=== PATIENT | female | born 1985 | race African-American/Black ===

== ENCOUNTER 2018-12-14 19:08 | Emergency (ER) | payer OTHER ==
[2018-12-14 19:14] VITALS: BP 121/71; PULSE 81; TEMP 98.7; BMI 32.2
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
== END 2018-12-14 22:45 | disposition home or self-care (01) ==
LOC: FER 19:08
DX: S09.90XA Unspecified injury of head, initial encounter (principal); S16.1XXA Strain of muscle, fascia and tendon at neck level, initial encounter; V43.52XA Car driver injured in collision with other type car in traffic accident, initial encounter; Y93.89 Activity, other specified; Y92.410 Unspecified street and highway as the place of occurrence of the external cause; J45.909 Unspecified asthma, uncomplicated; I10 Essential (primary) hypertension
CPT/HCPCS: 72050-TC-FY; 84703; 99281-25

== ENCOUNTER 2019-01-24 06:25 | Inpatient (IN) | payer OTHER ==
[2019-01-24 06:35] VITALS: BMI 32.4
[2019-01-24] MEDS ORDERED: ACETAMINOPHEN 1000 MG/100 ML VIAL (NON FORMULARY) IVPB ONE (06:42)
[2019-01-24] MEDS ORDERED: ONDANSETRON 4 MG/2 ML VIAL IVPUSH ONE (06:42)
[2019-01-24] MEDS ORDERED: SODIUM CHLORIDE 0.9% 1000 ML INFUS.BAG IV ONE (06:42)
--- NOTE | 2019-01-24 06:48 | PDOC ---
History of Present Illness - General Chief Complaint: Pain Stated Complaint: ABD PAIN Time Seen by Provider: 01/24/19 06:36 - History of Present Illness Initial Comments: 01/24/19 06:43 33 years old no significant past medical history has control implant in arm gave 15 months ago presents to the ED with 2 day history of sudden onset left flank pain left-sided abdominal discomfort no diffuse associated with 3-4 episodes of nonbilious nonbloody emesis nausea and inability to tolerate fluids pain is now persistent constant with no exacerbating or alleviating factors moderate to severe in severity sharp and achy in nature. Denies dysuria or frequency be urine is now dark and orange in color Past History - Past Medical History Allergies/Adverse Reactions: Allergies Allergy/AdvReac Type Severity Reaction Status Date / Time No Known Allergies Allergy Verified 08/27/16 19:37 Home Medications: Ambulatory Orders Etonogestrel [Nexplanon] 68 mg SQ ONCE 01/24/19 Asthma: Yes (NO MEDS) COPD: No HTN: Yes - Reproductive History (#): 3 Para: 1 Ectopic : Yes (ONE) Spontaneous : 1 - Suicide/Smoking/Psychosocial Hx Smoking History: Never smoked Have you smoked in the past 12 months: No Hx Alcohol Use: No Drug/Substance Use Hx: No Substance Use Type: None Review of Systems - Review of Systems Comments:: 01/24/19 06:45 ROS: A complete review of 10 out of 10 review of systems is taken and is negative apart from what is previously mentioned below and in the HPI. *Physical Exam - Vital Signs Last Vital Signs Temp Pulse Resp BP Pulse Ox 98.5 F 79 16 127/81 99 01/24/19 06:28 01/24/19 06:28 01/24/19 06:28 01/24/19 06:28 01/24/19 06:28 - Physical Exam Comments: 01/24/19 06:45 Vitals: Triage Vital signs reviewed General Appearance: mild acute distress, well nourished well developed, Head: Atraumatic, Chest Wall: Nontender Cardiac: Regular rate and rhythym, no murmurs, no rubs, no gallops, Lungs: Clear to auscultation bilateral, good air movement bilaterally, Abdomen: Soft, non distended, normal bowel sounds, left upper quadrant tenderness to palpation, diffuse abdominal tenderness to palpation, left greater than right, left CVA TTP Extremities: Full range of motion to all extremities, no cyanosis, clubbing, or edema Skin: Warm and dry, no rashes or lesions, no rash, no petechiae Psych: normal mood, normal affect Medical Decision Making - Medical Decision Making 01/24/19 06:47 33 years old with sudden onset left flank pain no abdominal tenderness Nausea vomiting moderate tenderness palpation on abdominal examination We'll check labs urinalysis urine hydrate antiemetics patient will likely require imaging Dr. Candelaria to follow up labs reassess and dispo *DC/Admit/Observation/Transfer Diagnosis at time of Disposition: Abdominal pain Qualifiers: Abdominal location: left upper quadrant Qualified Code(s): R10.12 - Left upper quadrant pain - Discharge Dispostion Condition at time of disposition: Stable - Referrals - Patient Instructions - Post Discharge Activity
[2019-01-24] MEDS ORDERED: ACETAMINOPHEN INJECTION 100 ML IVPB ONE (06:51)
[2019-01-24] MEDS ORDERED: ONDANSETRON 4 MG/2 ML VIAL ONE (06:51)
--- NOTE | 2019-01-24 07:20 | PDOC ---
*Physical Exam - Vital Signs Last Vital Signs Temp Pulse Resp BP Pulse Ox 98.5 F 79 16 127/81 99 01/24/19 06:28 01/24/19 06:28 01/24/19 06:28 01/24/19 06:28 01/24/19 06:28 Heart Score/ECG Review - ECG Impressions Comment:: EKG read 10:15- NSR 62 bpm, no acute ST/T changes ED Treatment Course - LABORATORY CBC & Chemistry Diagram: 01/24/19 06:50 01/24/19 06:52 - Medications Given in the ED: ED Medications Discontinued Medications Generic Name Dose Route Start Last Admin Trade Name Rosalba PRN Reason Stop Dose Admin Acetaminophen 1,000 mg 01/24/19 06:42 01/24/19 07:19 Ofirmev Injection - IVPB 01/24/19 06:43 1,000 mg ONCE ONE Administration Ondansetron HCl 4 mg 01/24/19 06:42 01/24/19 07:19 Zofran Injection IVPUSH 01/24/19 06:43 4 mg ONCE ONE Administration Sodium Chloride 1,000 ml 01/24/19 06:42 01/24/19 06:53 Normal Saline - IV 01/24/19 06:43 1,000 ml ONCE ONE Administration Medical Decision Making - Medical Decision Making 01/24/19 07:19 Pt endorsed to me by Dr. Guerra at 7am shift change. She presented with L flank pain radiating to LUQ, abrupt onset. Concerning for possible kidney stone. Awaiting labs, urine. Likely CT. 01/24/19 08:25 Labs resulted, lipase found to be >30,000. D/w patient and reassessed her. She has tenderness across the entire upper abdomen. I will obtain sono to r/o gallstones. I also added a lipid profile to prior labs. She states she does not drink alcohol with any frequency. Will keep her NPO on IV fluids and plan for admission pending imaging. 01/24/19 09:48 Contacted surgery dimensional engineer based on radiology reading of ultrasound. In light of symptoms, gallstone pancreatitis is most likely, acute jessica is unlikely. 01/24/19 09:56 Case d/w Dr. Wilson, suspect gallstone pancreatitis. Will require MRCP and possibly ERCP. Will admit to [facility]. Patient remains NPO on IV fluids. Will send preop labs. 01/24/19 09:57 Case d/w Kelli Swain HEAVY DUTY MECHANIC for hospitalist service, will see patient and begin workup while awaiting transfer to [facility]. *DC/Admit/Observation/Transfer Diagnosis at time of Disposition: Gallstone pancreatitis Pancreatitis Qualifiers: Chronicity: acute Pancreatitis type: unspecified pancreatitis type Acute pancreatitis complication: unspecified Qualified Code(s): K85.90 - Acute pancreatitis without necrosis or infection, unspecified - Discharge Dispostion Condition at time of disposition: Stable Decision to Admit order: Yes - Referrals - Patient Instructions - Post Discharge Activity
[2019-01-24 08:00] LABS: ALBUMIN 3.9 g/dl (3.4-5.0); BILIRUBIN,TOTAL 4.9 mg/dl (0.2-1); CALCIUM 8.8 mg/dl (8.5-10); CREATININE 0.7 mg/dl (0.55-1.3); POTASSIUM 4.1 mmol/L (3.5-5.1)
[2019-01-24 08:11] LABS: BASO % 0.4 % (0-2.0); EOS % 4.5 % (0-4.5); HEMOGLOBIN 11.8 GM/dL (10.7-15.3); LYMPH % 38.3 % (8-40); MCH 27.6 pg (25.7-33.7); MEAN CELL VOLUME 86.3 fl (80-96); MEAN PLT VOLUME 8.9 fl (7.5-11.1); MONO % 5.7 % (3.8-10.2); NEUT % 51.1 % (42.8-82.8); PLATELET COUNT 280 K/MM3 (134-434); RBC 4.29 M/mm3 (3.60-5.2); RDW 14.6 % (11.6-15.6); WHITE BLOOD COUNT 3.7 K/mm3 (4.0-10.0)
[2019-01-24] MEDS ORDERED: morphine CARPU-JECT 2 MG/1 ML DISP.SYRIN IVPUSH ONE (08:24)
[2019-01-24] MEDS ORDERED: SODIUM CHLORIDE 1,000 ML IV SCH (08:30)
[2019-01-24] MEDS ORDERED: morphine SULFATE 4 MG/ML VIAL ONE (08:39)
--- NOTE | 2019-01-24 10:08 | HP ---
CHIEF COMPLAINT: Left flank pain and left-sided abdominal pain HISTORY OF PRESENT ILLNESS: Based upon review of medical chart: 33 years old no significant past medical history has control implant in arm gave 15 months ago presents to the ED with 2 day history of sudden onset left flank pain left-sided abdominal discomfort no diffuse associated with 3-4 episodes of nonbilious nonbloody emesis nausea and inability to tolerate fluids pain is now persistent constant with no exacerbating or alleviating factors moderate to severe in severity sharp and achy in nature. Denies dysuria or frequency be urine is now dark and orange in color. At time of this admission patient had received 2mg morphine and benadryl and she felt too sleepy to answer questions or give further HPI. ER course was notable for: (1) WBC 3.7k, afebrile (2) Total bili 4.9, AST/ALT/Alk phos 289/578/194 (3) Lipase >30,000 (4) NS x 2L Recent Travel: No PAST MEDICAL HISTORY: Hypertension Asthma PAST SURGICAL HISTORY: Lumpectomy Social History: Smoking: never Alcohol: no Drugs: no Family History: Allergies No Known Allergies Allergy (Verified 01/24/19 08:07) HOME MEDICATIONS: Home Medications Medication Instructions Recorded Etonogestrel [Nexplanon] 68 mg SQ ONCE 01/24/19 REVIEW OF SYSTEMS: unable to obtain from patient due to medical condition PHYSICAL EXAMINATION Vital Signs - 24 hr 01/24/19 01/24/19 06:28 09:30 Temperature 98.5 F 98.8 F Pulse Rate 79 Pulse Rate [ 62 Right] Respiratory 16 16 Rate Blood Pressure 127/81 Blood Pressure 97/59 L [Left Arm] O2 Sat by Pulse 99 100 Oximetry (%) GENERAL: Awake, oriented. Sleepy but arousable. Follows commands, cooperative but says too sleepy to answer questions. HEAD: Normal with no signs of trauma. EYES: Pupils equal, round and reactive to light, extraocular movements intact, sclera anicteric, conjunctiva clear. No lid lag. EARS, NOSE, THROAT: Ears normal, nares patent, oropharynx clear without exudates. Moist mucous membranes. NECK: Normal range of motion, supple without lymphadenopathy, JVD, or masses. LUNGS: Breath sounds equal, clear to auscultation bilaterally. No wheezes, and no crackles. No accessory muscle use. HEART: Regular rate and rhythm, S1 and S2 ABDOMEN: Soft, tender across upper abdomen MUSCULOSKELETAL: Normal range of motion at all joints. No bony deformities or tenderness. No CVA tenderness. UPPER EXTREMITIES: 2+ pulses, warm, well-perfused. No cyanosis. No clubbing. No peripheral edema. LOWER EXTREMITIES: 2+ pulses, warm, well-perfused. No calf tenderness. No peripheral edema. NEUROLOGICAL: Cranial nerves II-XII intact. Normal speech. Laboratory Results - last 24 hr 01/24/19 01/24/19 01/24/19 06:41 06:50 06:50 WBC 3.7 L RBC 4.29 Hgb 11.8 Hct 37.0 MCV 86.3 MCH 27.6 MCHC 32.0 RDW 14.6 Plt Count 280 MPV 8.9 Absolute Neuts (auto) 1.9 Neutrophils % 51.1 Lymphocytes % 38.3 Monocytes % 5.7 Eosinophils % 4.5 Basophils % 0.4 Nucleated RBC % 0 Sodium Potassium Chloride Carbon Dioxide Anion Gap BUN Creatinine Est GFR (CKD-EPI)AfAm Est GFR (CKD-EPI)NonAf Random Glucose Calcium Total Bilirubin AST ALT Alkaline Phosphatase Total Protein Albumin Lipase > 75028 H Urine Color Yellow Urine Appearance Clear Urine pH 5.5 Urine Protein Negative Urine Glucose (UA) Negative Urine Ketones Negative Urine Blood Negative Urine Nitrite Negative Urine Bilirubin 2+ H Urine Urobilinogen 0.2 Ur Leukocyte Esterase Negative 01/24/19 06:52 WBC RBC Hgb Hct MCV MCH MCHC RDW Plt Count MPV Absolute Neuts (auto) Neutrophils % Lymphocytes % Monocytes % Eosinophils % Basophils % Nucleated RBC % Sodium 138 Potassium 4.1 Chloride 107 Carbon Dioxide 19 L Anion Gap 12 BUN 10 Creatinine 0.7 Est GFR (CKD-EPI)AfAm 131.02 Est GFR (CKD-EPI)NonAf 113.04 Random Glucose 110 H Calcium 8.8 Total Bilirubin 4.9 H AST 289 H ALT 578 H Alkaline Phosphatase 194 H Total Protein 7.0 Albumin 3.9 Lipase Urine Color Urine Appearance Urine pH Urine Protein Urine Glucose (UA) Urine Ketones Urine Blood Urine Nitrite Urine Bilirubin Urine Urobilinogen Ur Leukocyte Esterase ASSESSMENT/PLAN 33 year-old female with a PMH significant for HTN and asthma. Admitted for acute pancreatitis. Acute pancreatitis --lipase >30,000 --received NS x 2L in ED --switch NS to LR @ 150mL/hr --NPO Cholelithiasis r/o cholecystsitis r/o choledocholelithiasis --US: multiple small gallstones, likely sludge, mild thickening of gallbladder wall, no pericholecystic free fluid --attempted MRCP at [facility], patient could not tolerate due to claustrophobia even though had morphine and benadryl on board; since there is no telemetry monitoring in MRI suite at [facility] did not want to further sedate the patient; will transfer to [facility] for imaging in a monitored setting --patient advised ED staff that she had an MRI done a month ago and had to be completely sedated --GI consult requested --Dr. Wilson consulted and aware, also requesting transfer to [facility] DVT prophylaxis: SCDs Dispo: transfer to [facility]. Full code. Visit type - Emergency Visit Emergency Visit: Yes Care time: The patient presented to the Emergency Department on the above date and was hospitalized for further evaluation of their emergent condition. - New Patient This patient is new to me today: Yes Date on this admission: 01/24/19 - Critical Care Critical Care patient: No
[2019-01-24 11:28] LABS: INR 1.16 (0.82-1.09); PROTHROMBIN TIME (PATIENT) 12.7 SEC (10.2-13.0)
[2019-01-24] MEDS ORDERED: LACTATED RINGERS SOLUTION 1,000 ML/1,000 ML INFUS.BAG IV SCH (12:00)
[2019-01-24] MEDS ORDERED: ONDANSETRON 4 MG/2 ML VIAL IVPUSH PRN ×2 (12:06→20:14)
--- NOTE | 2019-01-24 15:01 | CONSULT ---
Consult Consult Specialty:: General Surgery Referred by:: Anisa Candelaria Reason for Consultation:: gallstone pancreatitis - History of Present Illness Chief Complaint: epigastric/upper abdominal pain through to back, N/V History of Present Illness: 33yo Steven F with asthma, h/o , L breast lumpectomy, LUE contraceptive implant, presented to [facility] ER with upper abdominal pain radiating through to back, worse on left, starting yesterday. It also woke her up from sleep last night, and she had N/V x 3 episodes at home. She was tolerating mint tea, but not eating much. Only one BM since Wednesday, usually twice daily. She also noted her urine was orange yesterday. She has had occasional recent headaches, and in the last couple days, has been dizzy "when she got up too quickly." In the ER, she had normal wbc, high LFTs and lipase ( bili 4.9, lip >30K), and US showed gallstones with possible sludge, no ductal dilation, possible wall thickening and no pericholecystic fluid. She could not tolerate MRI without sedation, and was sent to [facility] for MRCP, GI consultation and possible ERCP and cholecystectomy. Surgery was asked to assess. She is seen and examined in her bed, and gave the above history. She reports her pain is starting to come back a bit. 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 She is getting IV fluids at 150ml/hr. She is hungry but understands the need to stay NPO. She indicated that she had itching when she got morphine in the ER; she also was given benadryl. She has not had further N/V. - History Source History Provided By: Patient Limitations to Obtaining History: No Limitations - Past Medical History Pulmonary: Yes: Asthma (no inhaler use for years) Reproductive: Yes: Other (has Nexplanon implant LUE) ...: No ...Para: 2 (9 and 15m old) - Past Surgical History Past Surgical History: Yes: Breast Biopsy (probable fibroadenoma removed as youth in [place]), Additional Surgical History: Nexplanon implant left upper arm - Alcohol/Substance Use Hx Alcohol Use: Yes (occasionally) History of Substance Use: reports: None - Smoking History Smoking history: Never smoked Have you smoked in the past 12 months: No - Social History ADL: Independent 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 (year[place] 19 yrs ago Home Medications - Allergies Allergies/Adverse Reactions: Allergies Allergy/AdvReac Type Severity Reaction Status Date / Time peanut Allergy Severe Swelling Verified 01/24/19 15:12 morphine AdvReac Mild Itching Verified 01/24/19 15:00 - Home Medications Home Medications: Ambulatory Orders Etonogestrel [Nexplanon] 68 mg SQ ONCE 01/24/19 Family Disease History - Family Disease History Family History: Unremarkable (child with asthma) Review of Systems - Review of Systems Constitutional: reports: Loss of Appetite. denies: Chills, Fever Eyes: denies: Blurred Vision, Recent Change in Vision HENT: denies: Difficult Swallowing, Throat Pain Neck: denies: Pain on Movement, Stiffness Cardiovascular: reports: Other ("racing heart" occasionally). denies: Chest Pain, Palpitations Respiratory: denies: Cough, SOB Gastrointestinal: reports: Abdominal Pain (with hpi), Constipation (since Wednesday ), Nausea (with hpi), Vomiting (with hpi). denies: Diarrhea, Vomiting Blood Genitourinary: reports: Other (urine orange since yesterday). denies: Burning, Dysuria Musculoskeletal: reports: Back Pain (with hpi). denies: Joint Pain, Muscle Pain Integumentary: denies: Change in Color (none noted), Rash Neurological: reports: Dizziness (when getting up quickly last couple days), Headache (recently at times) Physical Exam Vital Signs: Vital Signs Temperature 98.8 F 01/24/19 13:15 Pulse Rate 64 01/24/19 13:15 Respiratory Rate 20 01/24/19 13:15 Blood Pressure 124/69 01/24/19 13:15 O2 Sat by Pulse Oximetry (%) 100 01/24/19 12:44 Constitutional: Yes: Well Nourished, No Distress, Calm Eyes: Yes: Conjunctiva Clear, EOM Intact, Sclera Icterus (faint? possible) HENT: Yes: Atraumatic, Normocephalic Neck: Yes: Supple, Trachea Midline Cardiovascular: Yes: Regular Rate and Rhythm Respiratory: Yes: Regular, CTA Bilaterally. No: Wheezes Gastrointestinal: Yes: Normal Bowel Sounds, Soft, Tenderness, Epigastrium (no francisca/guard), Other (well-healed Pfannenstiel scar). No: Distention Renal/: No: CVA Tenderness - Left, CVA Tenderness - Right Breast(s): Yes: Other (left upper breast healed scar) Musculoskeletal: No: Joint Stiffness, Joint Swelling Extremities: No: Cool, Cyanosis Edema: No Peripheral Pulses WNL: Yes Integumentary: No: Jaundice (not apparent on skin - vaguely yellowish under tongue), Rash Neurological: Yes: Alert, Oriented Psychiatric: Yes: Alert, Oriented Labs: CBC, BMP 01/24/19 06:50 01/24/19 06:52 CMP Sodium 138 mmol/L (136-145) 01/24/19 06:52 Potassium 4.1 mmol/L (3.5-5.1) 01/24/19 06:52 Chloride 107 mmol/L (98-107) 01/24/19 06:52 Carbon Dioxide 19 mmol/L (21-32) L 01/24/19 06:52 Anion Gap 12 MMOL/L (8-16) 01/24/19 06:52 BUN 10 mg/dl (7-18) 01/24/19 06:52 Creatinine 0.7 mg/dl (0.55-1.3) 01/24/19 06:52 Est GFR (CKD-EPI)AfAm 131.02 01/24/19 06:52 Est GFR (CKD-EPI)NonAf 113.04 01/24/19 06:52 Random Glucose 110 mg/dl (74-106) H 01/24/19 06:52 Calcium 8.8 mg/dl (8.5-10) 01/24/19 06:52 Total Bilirubin 4.9 mg/dl (0.2-1) H 01/24/19 06:52 AST 289 U/L (15-37) H 01/24/19 06:52 ALT 578 U/L (13-61) H 01/24/19 06:52 Alkaline Phosphatase 194 U/L (45-117) H 01/24/19 06:52 C-Reactive Protein 0.5 MG/DL (0.00-0.3) H 01/24/19 06:50 Total Protein 7.0 g/dl (6.4-8.2) 01/24/19 06:52 Albumin 3.9 g/dl (3.4-5.0) 01/24/19 06:52 Lipase > 36736 U/L (73-393) H 01/24/19 06:50 INR, PTT INR 1.16 (0.82-1.09) 01/24/19 09:59 Urine Test Results Urine Color Yellow 01/24/19 06:41 Urine Appearance Clear 01/24/19 06:41 Urine pH 5.5 (4.5-8) 01/24/19 06:41 Urine Protein Negative (NEGATIVE) 01/24/19 06:41 Urine Glucose (UA) Negative (NEGATIVE) 01/24/19 06:41 Urine Ketones Negative (NEGATIVE) 01/24/19 06:41 Urine Blood Negative (NEGATIVE) 01/24/19 06:41 Urine Nitrite Negative (NEGATIVE) 01/24/19 06:41 Urine Bilirubin 2+ (NEGATIVE) H 01/24/19 06:41 Ur Leukocyte Esterase Negative (NEGATIVE) 01/24/19 06:41 LFTs, lipase elevated no trend yet Imaging - Results Ultrasound: Report Reviewed, Image Reviewed (images reviewed; + gallstones, no pericholecystic fluid, no ductal dilation) MRI: Pending (per pt - will need sedation, she is very claustrophobic) Problem List - Problems (1) Gallstone pancreatitis Assessment/Plan: admitted to medicine NPO/generous IV hydration would NOT resume po until pain, tenderness resolve (after ERCP if done AND after assurance of no post-ERCP pancreatitis) trend labs, including lipase need MRCP (can do without contrast) - per pt, she will need sedation GI consulted for possible ERCP GI/DVT prophylaxis Code(s): K85.10 - BILIARY ACUTE PANCREATITIS WITHOUT NECROSIS OR INFECTION (2) Calculus of gallbladder and bile duct with obstruction without cholecystitis Assessment/Plan: will discuss timing of cholecystectomy after duct is cleared and pancreatitis mostly resolved Code(s): K80.71 - CALCULUS OF GB AND BILE DUCT W/O CHOLECYST W OBSTRUCTION (3) Epigastric pain Assessment/Plan: recommend nonnarcotics first line - IV tylenol/ibuprofen she had itching with morphine (not true allergy) Code(s): R10.13 - EPIGASTRIC PAIN (4) Nausea and vomiting Code(s): R11.2 - NAUSEA WITH VOMITING, UNSPECIFIED Qualifiers: Vomiting type: unspecified Vomiting Intractability: non-intractable Qualified Code(s): R11.2 - Nausea with vomiting, unspecified
[2019-01-24] MEDS: LACTATED RINGERS SOLUTION 1,000 ML/1,000 ML INFUS.BAG IV SCH ×2 (15:55→22:29)
--- NOTE | 2019-01-24 16:03 | CON.GI ---
Consult Consult Specialty:: GI Referred by:: Hospitalist Service Reason for Consultation:: Gallstone pancreatitis - History of Present Illness Chief Complaint: Abdominal pain History of Present Illness: 33F transferred from [place] for evaluation of sudden onset and progressively more intense left upper abdominal pain raditating to the back, starting at around 3pm yesterday. Noted to have elevated lipase and elevated liver chemistries. She denies alcohol use or similar episodes in the past. Abdominal US revealed multiple small gallstones. There is no known history of liver disease or pancreatitis. - History Source History Provided By: Patient, Medical Record Limitations to Obtaining History: No Limitations - Past Medical History Pulmonary: Yes: Asthma (no inhaler use for years) ...: No - Past Surgical History Past Surgical History: Yes: Breast Biopsy (probable fibroadenoma removed as youth in [place] (left breast)), Additional Surgical History: Nexplanon implant left upper arm - Alcohol/Substance Use Hx Alcohol Use: Yes (occasionally) History of Substance Use: reports: None - Smoking History Smoking history: Never smoked Have you smoked in the past 12 months: No - Social History Usual Living Arrangement: With Spouse ADL: Independent 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year[place] 2000 History of Recent Travel: No Home Medications - Allergies Allergies/Adverse Reactions: Allergies Allergy/AdvReac Type Severity Reaction Status Date / Time peanut Allergy Severe Swelling Verified 01/24/19 15:12 morphine AdvReac Mild Itching Verified 01/24/19 15:00 - Home Medications Home Medications: Ambulatory Orders Etonogestrel [Nexplanon] 68 mg SQ ONCE 01/24/19 Family Disease History - Family Disease History Family Disease History: Other: Father (Alive: healthy), Mother (Alive: healthy) , Brother (3, healthy), Sister (1, healthy), Son (1, Healthy), Daughter (1, healthy) Other Family History: 3 healthy 1/3 siblings. No family history of colorectal cancer or other GI malignancy. Review of Systems - Review of Systems Constitutional: denies: Chills Cardiovascular: reports: Palpitations. denies: Chest Pain, Edema Respiratory: denies: Cough Gastrointestinal: reports: Abdominal Pain. denies: Diarrhea, Melena, Rectal Bleeding Physical Exam-GI Vital Signs: Vital Signs Temperature 98.8 F 01/24/19 13:15 Pulse Rate 64 01/24/19 13:15 Respiratory Rate 20 01/24/19 13:15 Blood Pressure 124/69 01/24/19 13:15 O2 Sat by Pulse Oximetry (%) 100 01/24/19 12:44 Constitutional: Yes: Calm Eyes: Yes: Sclera Icterus (mildly icteric) Cardiovascular: Yes: Regular Rate and Rhythm. No: Murmur Respiratory: Yes: CTA Bilaterally Gastrointestinal Inspection: Yes: Scars (horizontal pelvic surgical scar). No: Distention ...Auscultate: Yes: Normoactive Bowel Sounds ...Palpate: Yes: Soft, Tenderness (TTP left upper abdomen > mid abdomen) ...Percussion: No: Tympanitic Edema: No (No LE edema) Neurological: Yes: Alert Labs: CBC, BMP 01/24/19 06:50 01/24/19 06:52 INR, PTT INR 1.16 (0.82-1.09) 01/24/19 09:59 Hepatic Panel Total Bilirubin 4.9 mg/dl (0.2-1) H 01/24/19 06:52 AST 289 U/L (15-37) H 01/24/19 06:52 ALT 578 U/L (13-61) H 01/24/19 06:52 Alkaline Phosphatase 194 U/L (45-117) H 01/24/19 06:52 Albumin 3.9 g/dl (3.4-5.0) 01/24/19 06:52 Imaging - Results Ultrasound: Report Reviewed Problem List - Problems (1) Gallstone pancreatitis Assessment/Plan: Suspected gallstone pancreatitis Given elevated bilirubin, discussed ERCP with Ms. Desir in order to exclude retained CBD stone prior to cholecystectomy. (Patient refuses MRCP secondary to severe claustraphobia, however, Elevated liver chemistries raise pretest probability that there is retained stone regardless if MRCP was negative) Discussed potential risks of the procedure like but not limited to bleeding, perforation requiring surgery to repair, infection, sedation medication effects and pancreatitis (5-10% of cases) all of which could be potentially life threatening. She has agreed to the procedure. For now IV hydration. 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
[2019-01-24] MEDS ORDERED: METOCLOPRAMIDE HCL INJECTION 10 MG/2 ML VIAL IVPUSH ONE (20:26)
[2019-01-25 07:28] LABS: BASO % 0.5 % (0-2.0); EOS % 1.6 % (0-4.5); HEMATOCRIT 35.5 % (32.4-45.2); HEMOGLOBIN 11.4 GM/dL (10.7-15.3); LYMPH % 33.3 % (8-40); MCH 27.8 pg (25.7-33.7); MEAN CELL VOLUME 86.7 fl (80-96); MEAN PLT VOLUME 8.4 fl (7.5-11.1); MONO % 6.3 % (3.8-10.2); NEUT % 58.3 % (42.8-82.8); PLATELET COUNT 276 K/MM3 (134-434); RBC 4.09 M/mm3 (3.60-5.2); RDW 14.4 % (11.6-15.6); WHITE BLOOD COUNT 4.8 K/mm3 (4.0-10.0)
[2019-01-25] MEDS ORDERED: INDOMETHACIN 50 MG RECTAL SUPPOSITORY PR ONE (08:00)
[2019-01-25 08:25] LABS: ALBUMIN 3.5 g/dl (3.4-5.0); CALCIUM 9.1 mg/dL (8.5-10.1); CREATININE 0.9 mg/dL (0.55-1.3); POTASSIUM 4.3 mmol/L (3.5-5.1); TOT PROT 6.6 g/dl (6.4-8.2)
[2019-01-25] MEDS ORDERED: ACETAMINOPHEN 1000 MG/100 ML VIAL (NON FORMULARY) IVPB PRN (08:41)
[2019-01-25] MEDS: PANTOPRAZOLE SODIUM 40 MG VIAL IVPUSH SCH (09:28)
[2019-01-25] MEDS: LACTATED RINGERS SOLUTION 1,000 ML/1,000 ML INFUS.BAG IV SCH (10:37)
--- NOTE | 2019-01-25 11:00 | PN ---
Progress Note, Physician Chief Complaint: abdominal pain History of Present Illness: Mrs Desir is a 33 year old female with a past medical history of hypertension and asthma. She has a control implant of her left upper arm and is post x 15 months ago. On 01/24/2019, she presented to [facility] ED for abdominal pain and acute onset of left flank pain with left sided abdominal discomfort associated with non bilious emesis and nausea. She was unable to tolerate fluids and abdominal pain was constant and sharp. She was transferred from [place] on 01/24/2019 for further management and surgical evaluation. imaging us/abdomen: multiple gallstones and likely sludge as well as mild thickening of gallbladder. ct abd/pelvis: no def ct evidence of acute pancreatitis. subtle to mild gallbladder and thickening is noted. ercp not yet scanned into [facility], as per GI note, 2 stones, but the 3rd could not be extracted so a stent was placed. Patient will need repeat ERCP after a course of Actigal 3-4 months. - Current Medication List Current Medications: Active Medications Acetaminophen (Ofirmev Injection -) 1,000 mg IVPB Q6H PRN PRN Reason: PAIN LEVEL 7 - 10 Lactated Ringer's (Lactated Ringers Solution) 1,000 ml in 1,000 mls @ 200 mls/ hr IV ASDIR [facility] Last Admin: 01/25/19 10:37 Dose: 200 mls/hr Ondansetron HCl (Zofran Injection) 4 mg IVPUSH Q6H PRN PRN Reason: NAUSEA Last Admin: 01/24/19 22:29 Dose: 4 mg Pantoprazole Sodium (Protonix Iv) 40 mg IVPUSH DAILY [facility] Last Admin: 01/25/19 09:28 Dose: 40 mg - Objective Vital Signs: Vital Signs Temperature 99.2 F 01/25/19 06:34 Pulse Rate 86 01/25/19 06:34 Respiratory Rate 20 01/25/19 06:34 Blood Pressure 124/72 01/25/19 06:34 O2 Sat by Pulse Oximetry (%) 100 01/24/19 12:44 Constitutional: Yes: Calm, Mild Distress Eyes: Yes: WNL HENT: Yes: WNL Neck: Yes: WNL Cardiovascular: Yes: Regular Rate and Rhythm Respiratory: Yes: Regular, CTA Bilaterally Gastrointestinal: Yes: Tenderness ...Rectal Exam: Yes: Deferred Genitourinary: Yes: WNL Musculoskeletal: Yes: WNL Extremities: Yes: WNL Peripheral Pulses WNL: Yes Integumentary: Yes: WNL Neurological: Yes: WNL, Alert, Oriented ...Motor Strength: WNL Psychiatric: Yes: WNL Labs: CBC, BMP 01/25/19 06:30 01/25/19 06:30 INR, PTT INR 1.16 (0.82-1.09) 01/24/19 09:59 Problem List - Problems (1) Gallstone pancreatitis Assessment/Plan: ultrasound, ctap noted. ultrasound with multiple gallstones and likely sludge. Had an ERCP today with 2 out of 3 stones extracted. 3rd stone could not be extracted so a stent was placed. Per GI, patient will need repeat ERCP after a course of Actigal 3-4 months. Maintain NPO for abdominal tenderness and mild nausea. Manage pain with toradol and dilaudid. Protonix IV. Advance diet per GI Lipase initially 30k, now 347. Repeat lipase in a.m. Code(s): K85.10 - BILIARY ACUTE PANCREATITIS WITHOUT NECROSIS OR INFECTION (2) Nausea and vomiting Assessment/Plan: Mild nausea. Zofran as needed. ekg reviewed. qtc normal. Code(s): R11.2 - NAUSEA WITH VOMITING, UNSPECIFIED Qualifiers: Vomiting type: unspecified Vomiting Intractability: non-intractable Qualified Code(s): R11.2 - Nausea with vomiting, unspecified (3) Hypertension Assessment/Plan: BP stable on no home medications. Monitor. Code(s): I10 - ESSENTIAL (PRIMARY) HYPERTENSION (4) Asthma Assessment/Plan: history of asthma. not in acute exacerbation. duonebs prn. Code(s): J45.909 - UNSPECIFIED ASTHMA, UNCOMPLICATED (5) Prophylactic measure Assessment/Plan: fen NPO, on IVF monitor electrolytes advance diet per surgery prophy SCDs protonix iv full code Code(s): Z29.9 - ENCOUNTER FOR PROPHYLACTIC MEASURES, UNSPECIFIED Visit type - Emergency Visit Emergency Visit: Yes ED Registration Date: 01/24/19 Care time: The patient presented to the Emergency Department on the above date and was hospitalized for further evaluation of their emergent condition. - New Patient This patient is new to me today: Yes Date on this admission: 01/25/19 - Critical Care Critical Care patient: No - Discharge Referral Referred to [facility] No
[2019-01-25] MEDS ORDERED: MIDAZOLAM HCL 2 MG/2 ML SINGLE DOSE VIAL ONE (12:28)
[2019-01-25] MEDS ORDERED: IOHEXOL 300 MG/ML INFUS..BTL IV ONE (13:19)
--- NOTE | 2019-01-25 13:54 | PN ---
Progress Note (short form) - Note Progress Note: GI Procedure NOte: Please see ERCP report. 2 stones removed but the 3rd could not be extracted so a stent was placed, Will need repeat ERCP after a course of Actigal in 3-4 months. Can proceed with cholecystectomy if pancreatitis doesn't ensue.
[2019-01-25] MEDS ORDERED: LACTATED RINGERS SOLUTION 1,000 ML/1,000 ML INFUS.BAG IV SCH ×2 (13:56→20:00)
[2019-01-25] MEDS ORDERED: oxyCODONE HCL 5 MG TABLET PO PRN (17:12)
[2019-01-25] MEDS ORDERED: KETOROLAC TROMETHAMINE 15 MG/ML VIAL IVPUSH ONE (17:24)
--- NOTE | 2019-01-25 17:24 | EKG ---
Test Reason : Blood Pressure : / mmHG Vent. Rate : 062 BPM Atrial Rate : 062 BPM P-R Int : 154 ms QRS Dur : 072 ms QT Int : 396 ms P-R-T Axes : 045 044 019 degrees QTc Int : 401 ms NORMAL SINUS RHYTHM NORMAL ECG NO PREVIOUS ECGS AVAILABLE Confirmed by DESEAN DICK MD ([id number]) on 01/25/2019 5:24:11 PM Referred By: MACI SARGENT Confirmed By:DESEAN DICK MD
[2019-01-25] MEDS ORDERED: KETOROLAC TROMETHAMINE 15 MG/ML VIAL IVPUSH PRN (17:25)
--- NOTE | 2019-01-25 20:09 | PN ---
Progress Note, Physician History of Present Illness: Pt with gallstone pancreatitis, s/p ERCP today with extraction of two out of three stones and stent placement. She is seen and examined in bed, with mother present. She c/o pain, returned after coming back from ERCP and before trying clears for dinner. The Toradol is not helping. She has spit a little bit in a basin, but denies nausea or vomiting. Pain is across upper abdomen. She had some jello and half a frozen ice. She is otherwise in good spirits. LFTs were down a bit today except alk phos a little up, and lipase down to 374 (all this morning). - Current Medication List Current Medications: Active Medications Acetaminophen (Tylenol -) 500 mg PO Q6H PRN PRN Reason: PAIN LEVEL 4 - 6 Lactated Ringer's (Lactated Ringers Solution) 1,000 ml in 1,000 mls @ 200 mls/ hr IV ASDIR JESSIE Stop: 01/26/19 02:00 Lactated Ringer's (Lactated Ringers Solution) 1,000 ml in 1,000 mls @ 175 mls/ hr IV ASDIR JESSIE Stop: 01/26/19 08:00 Lactated Ringer's (Lactated Ringers Solution) 1,000 ml in 1,000 mls @ 150 mls/ hr IV ASDIR JESSIE Levofloxacin (Levaquin 500 Mg Premixed Ivpb -) 500 mg in 100 mls @ 100 mls/hr IVPB DAILY JESSIE; Protocol Metronidazole (Flagyl 500mg Premixed Ivpb -) 500 mg in 100 mls @ 100 mls/hr IVPB Q8H-IV JESSIE Ketorolac Tromethamine (Toradol Injection -) 15 mg IVPUSH Q6H PRN PRN Reason: PAIN LEVEL 7 - 10 Stop: 01/30/19 17:24 Ondansetron HCl (Zofran Injection) 4 mg IVPUSH Q6H PRN PRN Reason: NAUSEA Last Admin: 01/24/19 22:29 Dose: 4 mg Pantoprazole Sodium (Protonix Iv) 40 mg IVPUSH DAILY JESSIE Last Admin: 01/25/19 09:28 Dose: 40 mg - Objective Vital Signs: Vital Signs Temperature 98.2 F 01/25/19 16:15 Pulse Rate 93 H 01/25/19 16:15 Respiratory Rate 20 01/25/19 16:15 Blood Pressure 121/72 01/25/19 16:15 O2 Sat by Pulse Oximetry (%) 100 01/25/19 15:30 Constitutional: Yes: Well Nourished, No Distress, Calm Eyes: Yes: Conjunctiva Clear, EOM Intact, Sclera Icterus (faintly yellowish) Gastrointestinal: Yes: Soft, Tenderness (LUQ > RUQ - right side refers to epigastric and LUQ; + rebound), Tenderness, Epigastrium Extremities: No: Cool, Cyanosis Integumentary: Yes: Tattoos. No: Jaundice (not apparent), Rash Neurological: Yes: Alert, Oriented Labs: CBC, BMP 01/25/19 06:30 01/25/19 06:30 CMP Sodium 138 mmol/L (136-145) 01/25/19 06:30 Potassium 4.3 mmol/L (3.5-5.1) 01/25/19 06:30 Chloride 108 mmol/L (98-107) H 01/25/19 06:30 Carbon Dioxide 20 mmol/L (21-32) L 01/25/19 06:30 Anion Gap 10 MMOL/L (8-16) 01/25/19 06:30 BUN 7 mg/dL (7-18) 01/25/19 06:30 Creatinine 0.9 mg/dL (0.55-1.3) 01/25/19 06:30 Est GFR (CKD-EPI)AfAm 96.69 01/25/19 06:30 Est GFR (CKD-EPI)NonAf 83.42 01/25/19 06:30 Random Glucose 67 mg/dL (74-106) L 01/25/19 06:30 Calcium 9.1 mg/dL (8.5-10.1) 01/25/19 06:30 Total Bilirubin 4.0 mg/dL (0.2-1) H 01/25/19 06:30 Direct Bilirubin Cancelled 01/24/19 06:52 AST 156 U/L (15-37) H 01/25/19 06:30 ALT 490 U/L (13-61) H 01/25/19 06:30 Alkaline Phosphatase 230 U/L (45-117) H 01/25/19 06:30 C-Reactive Protein 0.5 MG/DL (0.00-0.3) H 01/24/19 06:50 Total Protein 6.6 g/dl (6.4-8.2) 01/25/19 06:30 Albumin 3.5 g/dl (3.4-5.0) 01/25/19 06:30 Triglycerides Cancelled 01/24/19 06:52 Cholesterol Cancelled 01/24/19 06:52 Total LDL Cholesterol Cancelled 01/24/19 06:52 HDL Cholesterol Cancelled 01/24/19 06:52 Lipase 374 U/L (73-393) 01/25/19 06:30 Problem List - Problems (1) Gallstone pancreatitis Assessment/Plan: s/p ERCP with stone extraction and residual stone left, with stent placement would revert to NPO except meds and ice chips while still so painful and tender continue generous IV hydration trend labs, including lipase antibiotics per GI tylenol and toradol first line, will add dilaudid small dose for breakthru pain (morphine causes ITCHING, not allergy - benadryl prn also ordered) monitor for bump in lipase in am/post-ERCP pancreatitis discussed with SELIN Gregory Code(s): K85.10 - BILIARY ACUTE PANCREATITIS WITHOUT NECROSIS OR INFECTION (2) Calculus of gallbladder and bile duct with obstruction without cholecystitis Assessment/Plan: will discuss timing of cholecystectomy after pancreatitis more resolved, less pain and tenderness will f/u tomorrow in afternoon Code(s): K80.71 - CALCULUS OF GB AND BILE DUCT W/O CHOLECYST W OBSTRUCTION (3) Epigastric pain Assessment/Plan: not much improved yet still quite tender NPO x meds/ice chips see above Code(s): R10.13 - EPIGASTRIC PAIN (4) Nausea and vomiting Assessment/Plan: improved Code(s): R11.2 - NAUSEA WITH VOMITING, UNSPECIFIED Qualifiers: Vomiting type: unspecified Vomiting Intractability: non-intractable Qualified Code(s): R11.2 - Nausea with vomiting, unspecified
[2019-01-25] MEDS: HYDROmorphone HCl 2 MG/ML VIAL IVPB PRN (20:29)
[2019-01-25] MEDS ORDERED: ALBUTEROL SO4 2.5/IPRATROPIUM 0.5 INH SOL 3 ML VIAL.NEB. NEB PRN (21:54)
[2019-01-26] MEDS ORDERED: LACTATED RINGERS SOLUTION 1,000 ML/1,000 ML INFUS.BAG IV SCH (02:00)
[2019-01-26 08:00] LABS: BASO % 0.1 % (0-2.0); HEMATOCRIT 31.3 % (32.4-45.2); HEMOGLOBIN 10.2 GM/dL (10.7-15.3); LYMPH % 10.1 % (8-40); MCH 28.2 pg (25.7-33.7); MCHC 32.6 g/dl (32.0-36.0); MEAN CELL VOLUME 86.5 fl (80-96); MEAN PLT VOLUME 8.8 fl (7.5-11.1); MONO % 4.4 % (3.8-10.2); NEUT % 85.4 % (42.8-82.8); PLATELET COUNT 261 K/MM3 (134-434); RBC 3.62 M/mm3 (3.60-5.2); RDW 14.3 % (11.6-15.6); WHITE BLOOD COUNT 10.8 K/mm3 (4.0-10.0)
[2019-01-26 08:19] LABS: BILIRUBIN,DIRECT 1.5 mg/dL (0.0-0.2); BILIRUBIN,TOTAL 1.9 mg/dL (0.2-1); CALCIUM 8.8 mg/dL (8.5-10.1); CREATININE 0.9 mg/dL (0.55-1.3); POTASSIUM 4.1 mmol/L (3.5-5.1); TOT PROT 6.1 g/dl (6.4-8.2)
[2019-01-26] MEDS: HYDROmorphone HCl 2 MG/ML VIAL IVPB PRN (08:22)
[2019-01-26] MEDS: PANTOPRAZOLE SODIUM 40 MG VIAL IVPUSH SCH (09:07)
[2019-01-26] MEDS ORDERED: HYDROmorphone HCl 2 MG/ML VIAL IVPB PRN (14:20)
--- NOTE | 2019-01-26 14:21 | PN ---
Progress Note, Physician Chief Complaint: feeling dizzy and having "delusions" each time she takes dilaudid. History of Present Illness: Mrs Desir is a 33 year old female with a past medical history of asthma. She has a control implant of her left upper arm and is post x 15 months ago. On 01/24/2019, she presented to [facility] ED for abdominal pain and acute onset of left flank pain with left sided abdominal discomfort associated with non bilious emesis and nausea. She was unable to tolerate fluids and abdominal pain was constant and sharp. She was transferred from [place] on 01/24/2019 for further management and surgical evaluation. imaging us/abdomen: multiple gallstones and likely sludge as well as mild thickening of gallbladder. ct abd/pelvis: no def ct evidence of acute pancreatitis. subtle to mild gallbladder and thickening is noted. per GI note, 2 stones, but the 3rd could not be extracted so a stent was placed. Patient will need repeat ERCP after a course of Actigal 3-4 months. - Current Medication List Current Medications: Active Medications Acetaminophen (Tylenol -) 500 mg PO Q6H PRN PRN Reason: PAIN LEVEL 4 - 6 Albuterol/Ipratropium (Duoneb -) 1 amp NEB Q6H PRN PRN Reason: SHORTNESS OF BREATH Diphenhydramine HCl (Benadryl Injection -) 25 mg IVPUSH Q4H PRN PRN Reason: FOR ITCHING Hydromorphone HCl (Dilaudid Vial -) 0.5 mg IVPB Q4H PRN PRN Reason: Pain Level 7 - 10 BREAKTHROUGH Lactated Ringer's (Lactated Ringers Solution) 1,000 ml in 1,000 mls @ 150 mls/ hr IV ASDIR JESSIE Levofloxacin (Levaquin 500 Mg Premixed Ivpb -) 500 mg in 100 mls @ 100 mls/hr IVPB DAILY JESSIE; Protocol Last Admin: 01/26/19 09:07 Dose: 100 mls/hr Metronidazole (Flagyl 500mg Premixed Ivpb -) 500 mg in 100 mls @ 100 mls/hr IVPB Q8H-IV JESSIE Last Admin: 01/26/19 10:10 Dose: 100 mls/hr Ketorolac Tromethamine (Toradol Injection -) 15 mg IVPUSH Q6H PRN PRN Reason: PAIN LEVEL 7 - 10 Stop: 01/30/19 17:24 Last Admin: 01/26/19 05:42 Dose: 15 mg Ondansetron HCl (Zofran Injection) 4 mg IVPUSH Q6H PRN PRN Reason: NAUSEA Last Admin: 01/24/19 22:29 Dose: 4 mg Pantoprazole Sodium (Protonix Iv) 40 mg IVPUSH DAILY JESSIE Last Admin: 01/26/19 09:07 Dose: 40 mg - Objective Vital Signs: Vital Signs Temperature 98.8 F 01/26/19 10:00 Pulse Rate 50 L 01/26/19 10:00 Respiratory Rate 20 01/26/19 10:00 Blood Pressure 130/60 01/26/19 10:00 O2 Sat by Pulse Oximetry (%) 100 01/26/19 09:00 Constitutional: Yes: No Distress, Calm Eyes: Yes: WNL HENT: Yes: WNL Neck: Yes: WNL Cardiovascular: Yes: Regular Rate and Rhythm Respiratory: Yes: Regular Gastrointestinal: Yes: Normal Bowel Sounds, Tenderness ...Rectal Exam: Yes: Deferred Genitourinary: Yes: WNL Musculoskeletal: Yes: WNL Extremities: Yes: WNL Edema: No Peripheral Pulses WNL: No Integumentary: Yes: WNL Neurological: Yes: Alert, Oriented Psychiatric: Yes: WNL, Alert, Oriented Labs: CBC, BMP 01/26/19 07:00 01/26/19 07:00 INR, PTT INR 1.16 (0.82-1.09) 01/24/19 09:59 Problem List - Problems (1) Gallstone pancreatitis Assessment/Plan: ultrasound, ctap noted. ultrasound with multiple gallstones and likely sludge. Had an ERCP 01/25 with 2 out of 3 stones extracted. 3rd stone could not be extracted so a stent was placed. Per GI, patient will need repeat ERCP after a course of Actigal 3-4 months. Bowel rest for abdominal tenderness and mild nausea, Lipase increased today post ERCP. Manage abdominal pain with toradol and use dilaudid only if toradol not effective (dilaudid dose decreased) Protonix IV daily. patient to remain npo for possible surgical interventions in the a.m. repeat lipase in a.m. Code(s): K85.10 - BILIARY ACUTE PANCREATITIS WITHOUT NECROSIS OR INFECTION (2) Nausea and vomiting Assessment/Plan: Mild nausea. Zofran as needed. ekg reviewed. qtc normal. Code(s): R11.2 - NAUSEA WITH VOMITING, UNSPECIFIED Qualifiers: Vomiting type: unspecified Vomiting Intractability: non-intractable Qualified Code(s): R11.2 - Nausea with vomiting, unspecified (3) Hypertension Assessment/Plan: Patient denies history of hypertension. BP stable and not elevated during hospitalization. Will monitor BP but will remove this diagnosis from EMR. Code(s): I10 - ESSENTIAL (PRIMARY) HYPERTENSION (4) Asthma Assessment/Plan: history of asthma. not in acute exacerbation. duonebs prn. Code(s): J45.909 - UNSPECIFIED ASTHMA, UNCOMPLICATED (5) Prophylactic measure Assessment/Plan: fen NPO, on IVF monitor electrolytes advance diet per surgery prophy SCDs protonix iv full code Code(s): Z29.9 - ENCOUNTER FOR PROPHYLACTIC MEASURES, UNSPECIFIED Visit type - Emergency Visit Emergency Visit: Yes ED Registration Date: 01/24/19 Care time: The patient presented to the Emergency Department on the above date and was hospitalized for further evaluation of their emergent condition. - New Patient This patient is new to me today: No - Critical Care Critical Care patient: No - Discharge Referral Referred to [facility] No
--- NOTE | 2019-01-26 15:23 | PN.GI ---
GI Progress Note Subjective: No acute events S/P ERCP with CBD stone x 3, 2 able to be removed, 1 remains with stent placed States that she is tired and just wants to sleep - Objective Vital Signs: Vital Signs Temperature 98.8 F 01/26/19 10:00 Pulse Rate 50 L 01/26/19 10:00 Respiratory Rate 20 01/26/19 10:00 Blood Pressure 130/60 01/26/19 10:00 O2 Sat by Pulse Oximetry (%) 100 01/26/19 09:00 Constitutional: Calm Eyes: No: Sclera Icterus Cardiovascular: Yes: Bradycardia Respiratory: Yes: CTA Bilaterally Gastrointestinal Inspection: No: Distention ...Auscultate: Yes: Normoactive Bowel Sounds ...Palpate: Yes: Tenderness (TTP in the mid upper abdomen > RUQ) Edema: No (No LE edema) Neurological: Yes: Alert Labs: CBC, BMP 01/26/19 07:00 01/26/19 07:00 INR, PTT INR 1.16 (0.82-1.09) 01/24/19 09:59 Hepatic Panel Total Bilirubin 1.9 mg/dL (0.2-1) H D 01/26/19 07:00 Direct Bilirubin 1.5 mg/dL (0.0-0.2) H 01/26/19 07:00 AST 151 U/L (15-37) H 01/26/19 07:00 ALT 423 U/L (13-61) H 01/26/19 07:00 Alkaline Phosphatase 197 U/L (45-117) H 01/26/19 07:00 Albumin 3.0 g/dl (3.4-5.0) L 01/26/19 07:00 Problem List - Problems (1) Gallstone pancreatitis Assessment/Plan: S/P ERCP w/ sphincterotomy and stone extraction x 2: 1 stone could not be removed and stent placed. Still with mid abdominal pain. Suspect some worsening of pancreatitis by ERCP Continue bowel rest IV hydration Monitor labs Actigal initiated by Dr. Kaur with repeat ERCP planned in 3-4 months IV Abx Code(s): K85.10 - BILIARY ACUTE PANCREATITIS WITHOUT NECROSIS OR INFECTION
[2019-01-26] MEDS: LACTATED RINGERS SOLUTION 1,000 ML/1,000 ML INFUS.BAG IV SCH (17:08)
[2019-01-26] MEDS: ACETAMINOPHEN 500 MG TABLET (FP) PO PRN (18:48)
--- NOTE | 2019-01-26 18:59 | PN ---
Progress Note, Physician History of Present Illness: Pt with gallstone pancreatitis, s/p ERCP yesterday with extraction of two out of three stones and stent placement. She is seen and examined in bed with mother present. She c/o a little less pain, but more hunger pains. She also has a headache, and she did not like the way the dilaudid made her feel at all. She is coughing up some phlegm. Lipase was back up today >2000. She just wants to be able to sleep. - Current Medication List Current Medications: Active Medications Acetaminophen (Tylenol -) 500 mg PO Q6H PRN PRN Reason: PAIN LEVEL 4 - 6 Last Admin: 01/26/19 18:48 Dose: 500 mg Albuterol/Ipratropium (Duoneb -) 1 amp NEB Q6H PRN PRN Reason: SHORTNESS OF BREATH Diphenhydramine HCl (Benadryl Injection -) 25 mg IVPUSH Q4H PRN PRN Reason: FOR ITCHING Last Admin: 01/26/19 18:47 Dose: 25 mg Hydromorphone HCl (Dilaudid Vial -) 0.5 mg IVPB Q4H PRN PRN Reason: Pain Level 7 - 10 BREAKTHROUGH Lactated Ringer's (Lactated Ringers Solution) 1,000 ml in 1,000 mls @ 150 mls/ hr IV ASDIR JESSIE Last Admin: 01/26/19 17:08 Dose: 150 mls/hr Levofloxacin (Levaquin 500 Mg Premixed Ivpb -) 500 mg in 100 mls @ 100 mls/hr IVPB DAILY JESSIE; Protocol Last Admin: 01/26/19 09:07 Dose: 100 mls/hr Metronidazole (Flagyl 500mg Premixed Ivpb -) 500 mg in 100 mls @ 100 mls/hr IVPB Q8H-IV JESSIE Last Admin: 01/26/19 17:08 Dose: 100 mls/hr Ketorolac Tromethamine (Toradol Injection -) 15 mg IVPUSH Q6H PRN PRN Reason: PAIN LEVEL 7 - 10 Stop: 01/30/19 17:24 Last Admin: 01/26/19 05:42 Dose: 15 mg Ondansetron HCl (Zofran Injection) 4 mg IVPUSH Q6H PRN PRN Reason: NAUSEA Last Admin: 01/24/19 22:29 Dose: 4 mg Pantoprazole Sodium (Protonix Iv) 40 mg IVPUSH DAILY JESSIE Last Admin: 01/26/19 09:07 Dose: 40 mg - Objective Vital Signs: Vital Signs Temperature 98.4 F 01/26/19 16:15 Pulse Rate 58 L 01/26/19 16:15 Respiratory Rate 18 01/26/19 16:15 Blood Pressure 115/71 01/26/19 16:15 O2 Sat by Pulse Oximetry (%) 100 01/26/19 09:00 Constitutional: Yes: Well Nourished, No Distress, Calm Eyes: Yes: Conjunctiva Clear, EOM Intact. No: Sclera Icterus Respiratory: Yes: Cough (productive). No: SOB Gastrointestinal: Yes: Soft, Abdomen, Obese, Tenderness (LUQ > RUQ, most epigastric, no sig tend in lower quadrants, less rebound), Tenderness, Epigastrium Extremities: No: Cool, Cyanosis Integumentary: Yes: Tattoos. No: Jaundice, Rash Neurological: Yes: Alert, Oriented Labs: CBC, BMP 01/26/19 07:00 01/26/19 07:00 INR, PTT INR 1.16 (0.82-1.09) 01/24/19 09:59 Problem List - Problems (1) Gallstone pancreatitis Assessment/Plan: s/p ERCP with stone extraction and residual stone left, with stent placement bump in lipase, post-ERCP pancreatitis continue NPO except meds and ice chips continue generous IV hydration trend labs, including lipase antibiotics per GI Tylenol and benadryl now to help with headache and sleep tenderness mildly decreased still with pain and tenderness though will reassess in am Code(s): K85.10 - BILIARY ACUTE PANCREATITIS WITHOUT NECROSIS OR INFECTION (2) Calculus of gallbladder and bile duct with obstruction without cholecystitis Assessment/Plan: Discussed with patient risks, benefits and alternatives of laparoscopic possible open cholecystectomy, including but not limited to bleeding, infection , injury to adjacent structures, bile leak or ductal injury, intraabdominal abscess, incisional hernia, need for further procedures, ; alternatives include delayed or no surgery - risks of this include recurrence of pancreatitis , cholecystitis, cholangitis, sepsis, . Patient desires to proceed with operation - will plan for OR tomorrow for above , pending am labs and repeat exam. Informed consent signed for same. Code(s): K80.71 - CALCULUS OF GB AND BILE DUCT W/O CHOLECYST W OBSTRUCTION (3) Epigastric pain Assessment/Plan: improved a little NPO x meds/ice chips see above Code(s): R10.13 - EPIGASTRIC PAIN (4) Nausea and vomiting Assessment/Plan: resolved coughing with phlegm, likely related to intubation yesterday Code(s): R11.2 - NAUSEA WITH VOMITING, UNSPECIFIED Qualifiers: Vomiting type: unspecified Vomiting Intractability: non-intractable Qualified Code(s): R11.2 - Nausea with vomiting, unspecified
[2019-01-27] MEDS: LACTATED RINGERS SOLUTION 1,000 ML/1,000 ML INFUS.BAG IV SCH (00:37)
[2019-01-27] MEDS: ACETAMINOPHEN 500 MG TABLET (FP) PO PRN ×2 (00:41→06:49)
[2019-01-27 07:34] LABS: BASO % 0.3 % (0-2.0); EOS % 0.5 % (0-4.5); HEMATOCRIT 31.9 % (32.4-45.2); HEMOGLOBIN 10.2 GM/dL (10.7-15.3); LYMPH % 34.9 % (8-40); MCH 27.8 pg (25.7-33.7); MCHC 31.9 g/dl (32.0-36.0); MEAN CELL VOLUME 87.1 fl (80-96); MEAN PLT VOLUME 8.8 fl (7.5-11.1); MONO % 4.2 % (3.8-10.2); NEUT % 60.1 % (42.8-82.8); PLATELET COUNT 260 K/MM3 (134-434); RBC 3.66 M/mm3 (3.60-5.2); RDW 14.7 % (11.6-15.6); WHITE BLOOD COUNT 9.3 K/mm3 (4.0-10.0)
[2019-01-27 07:46] LABS: MAGNESIUM 2.1 mg/dL (1.8-2.4)
[2019-01-27 07:47] LABS: ALBUMIN 3.2 g/dl (3.4-5.0); BILIRUBIN,TOTAL 1.2 mg/dL (0.2-1); CALCIUM 8.5 mg/dL (8.5-10.1); CREATININE 0.9 mg/dL (0.55-1.3); TOT PROT 5.9 g/dl (6.4-8.2)
[2019-01-27] MEDS: PANTOPRAZOLE SODIUM 40 MG VIAL IVPUSH SCH (09:12)
--- NOTE | 2019-01-27 09:35 | PN ---
Progress Note, Physician Chief Complaint: offers no complaints today, mildly tender abdomen when palpated, but improved. taught how to use incentive spirometer pre op. She has been NPO History of Present Illness: Mrs Desir is a 33 year old female with a past medical history of asthma. She has a control implant of her left upper arm and is post x 15 months ago. On 01/24/2019, she presented to [facility] ED for abdominal pain and acute onset of left flank pain with left sided abdominal discomfort associated with non bilious emesis and nausea. She was unable to tolerate fluids and abdominal pain was constant and sharp. She was transferred from [place] on 01/24/2019 for further management and surgical evaluation. On 01/25/19 she underwent an ercp and had two out of of three stones extracted. The third stone could not be extracted and a stent placed. per GI note, patient will need repeat ERCP after a full course of Actigal. She is for the OR today for laparoscopic possible open cholecystectomy with Dr. Wilson. Labs 01/27/2019: WBC trending down mild anemia noted on labs, will order iron studies ast/alt elevated, but trending down from previous lipase 213 imaging us/abdomen: multiple gallstones and likely sludge as well as mild thickening of gallbladder. ct abd/pelvis: no def ct evidence of acute pancreatitis. subtle to mild gallbladder and thickening is noted. - Current Medication List Current Medications: Active Medications Acetaminophen (Tylenol -) 500 mg PO Q6H PRN PRN Reason: PAIN LEVEL 4 - 6 Last Admin: 01/27/19 06:49 Dose: 500 mg Albuterol/Ipratropium (Duoneb -) 1 amp NEB Q6H PRN PRN Reason: SHORTNESS OF BREATH Diphenhydramine HCl (Benadryl Injection -) 25 mg IVPUSH Q4H PRN PRN Reason: FOR ITCHING Last Admin: 01/26/19 18:47 Dose: 25 mg Hydromorphone HCl (Dilaudid Vial -) 0.5 mg IVPB Q4H PRN PRN Reason: Pain Level 7 - 10 BREAKTHROUGH Lactated Ringer's (Lactated Ringers Solution) 1,000 ml in 1,000 mls @ 150 mls/ hr IV ASDIR JESSIE Last Admin: 01/27/19 00:37 Dose: 150 mls/hr Levofloxacin (Levaquin 500 Mg Premixed Ivpb -) 500 mg in 100 mls @ 100 mls/hr IVPB DAILY JESSIE; Protocol Last Admin: 01/26/19 09:07 Dose: 100 mls/hr Metronidazole (Flagyl 500mg Premixed Ivpb -) 500 mg in 100 mls @ 100 mls/hr IVPB Q8H-IV JESSIE Last Admin: 01/27/19 09:12 Dose: 100 mls/hr Ketorolac Tromethamine (Toradol Injection -) 15 mg IVPUSH Q6H PRN PRN Reason: PAIN LEVEL 7 - 10 Stop: 01/30/19 17:24 Last Admin: 01/26/19 05:42 Dose: 15 mg Ondansetron HCl (Zofran Injection) 4 mg IVPUSH Q6H PRN PRN Reason: NAUSEA Last Admin: 01/24/19 22:29 Dose: 4 mg Pantoprazole Sodium (Protonix Iv) 40 mg IVPUSH DAILY [facility] Last Admin: 01/27/19 09:12 Dose: 40 mg - Objective Vital Signs: Vital Signs Temperature 99.2 F 01/27/19 07:47 Pulse Rate 62 01/27/19 07:47 Respiratory Rate 20 01/27/19 07:47 Blood Pressure 128/70 01/27/19 07:47 O2 Sat by Pulse Oximetry (%) 100 01/26/19 21:00 Constitutional: Yes: Well Nourished, No Distress, Calm HENT: Yes: WNL Neck: Yes: WNL Cardiovascular: Yes: WNL, Regular Rate and Rhythm Respiratory: Yes: WNL, CTA Bilaterally (clear lungs, right lung slightly diminished compared to left, given incentive spirometer) Gastrointestinal: Yes: Normal Bowel Sounds, Soft (mildly tender) ...Rectal Exam: Yes: Deferred Genitourinary: Yes: WNL Musculoskeletal: Yes: WNL Extremities: Yes: WNL Edema: No Integumentary: Yes: WNL Neurological: Yes: WNL, Alert, Oriented Psychiatric: Yes: WNL Labs: CBC, BMP 01/27/19 06:20 01/27/19 06:20 INR, PTT INR 1.16 (0.82-1.09) 01/24/19 09:59 Problem List - Problems (1) Gallstone pancreatitis Assessment/Plan: ultrasound, ctap noted. ultrasound with multiple gallstones and likely sludge. Had an ERCP 01/25 with 2 out of 3 stones extracted. 3rd stone could not be extracted so a stent was placed. Per GI, patient will need repeat ERCP after a course of Actigal 3-4 months. She is for the OR today for laparoscopic possible open cholecystectomy with Dr. Wilson. Bowel rest for abdominal tenderness and mild nausea, Lipase within normal limits. ast/alt slowly trending down On Levaquin, Flagyl and Lactate Ringers. Code(s): K85.10 - BILIARY ACUTE PANCREATITIS WITHOUT NECROSIS OR INFECTION (2) Nausea and vomiting Assessment/Plan: Mild nausea, but none currently. Zofran as needed. ekg reviewed. qtc normal. Code(s): R11.2 - NAUSEA WITH VOMITING, UNSPECIFIED Qualifiers: Vomiting type: unspecified Vomiting Intractability: non-intractable Qualified Code(s): R11.2 - Nausea with vomiting, unspecified (3) Asthma Assessment/Plan: history of asthma. not in acute exacerbation. duonebs prn. Code(s): J45.909 - UNSPECIFIED ASTHMA, UNCOMPLICATED (4) Prophylactic measure Assessment/Plan: fen NPO, on IVF monitor electrolytes advance diet per surgery prophy SCDs incentive spirometer early ambulation post op protonix iv full code Code(s): Z29.9 - ENCOUNTER FOR PROPHYLACTIC MEASURES, UNSPECIFIED Visit type - Emergency Visit Emergency Visit: Yes ED Registration Date: 01/24/19 Care time: The patient presented to the Emergency Department on the above date and was hospitalized for further evaluation of their emergent condition. - New Patient This patient is new to me today: No - Critical Care Critical Care patient: No - Discharge Referral Referred to [facility] Med P.C.: No
[2019-01-27] MEDS ORDERED: BUPIVACAINE HCL/PF 0.5% (5MG/ML) 10 ML VIAL ONE (09:40)
--- NOTE | 2019-01-27 10:40 | PN.GI ---
GI Progress Note Subjective: No acute events States feeling better Abdominal pain improving - Objective Vital Signs: Vital Signs Temperature 99.2 F 01/27/19 07:47 Pulse Rate 62 01/27/19 07:47 Respiratory Rate 20 01/27/19 07:47 Blood Pressure 128/70 01/27/19 07:47 O2 Sat by Pulse Oximetry (%) 100 01/26/19 21:00 Constitutional: Calm Eyes: No: Sclera Icterus Cardiovascular: Yes: Regular Rate and Rhythm Respiratory: Yes: CTA Bilaterally Gastrointestinal Inspection: No: Distention ...Auscultate: Yes: Normoactive Bowel Sounds ...Palpate: Yes: Soft, Tenderness (TTP in mid/uper abdomen, improved from yesterday) ...Percussion: No: Tympanitic Edema: No (No LE edema) Neurological: Yes: Alert Labs: CBC, BMP 01/27/19 06:20 01/27/19 06:20 INR, PTT INR 1.16 (0.82-1.09) 01/24/19 09:59 Hepatic Panel Total Bilirubin 1.2 mg/dL (0.2-1) H 01/27/19 06:20 Direct Bilirubin 1.5 mg/dL (0.0-0.2) H 01/26/19 07:00 AST 148 U/L (15-37) H 01/27/19 06:20 ALT 402 U/L (13-61) H 01/27/19 06:20 Alkaline Phosphatase 177 U/L (45-117) H 01/27/19 06:20 Albumin 3.2 g/dl (3.4-5.0) L 01/27/19 06:20 Problem List - Problems (1) Gallstone pancreatitis Assessment/Plan: Clinically improving: For Lap jessica for today Started Actigal Will need repeat ERCP in 3 months for stent removal and stone extraction Monitor LFTs Code(s): K85.10 - BILIARY ACUTE PANCREATITIS WITHOUT NECROSIS OR INFECTION
[2019-01-27] MEDS ORDERED: ROCURONIUM BROMIDE 50 MG/5 ML VIAL ONE (10:47)
[2019-01-27] MEDS ORDERED: fentaNYL CITRATE 250 MCG/5 ML VIAL ONE (10:47)
[2019-01-27] MEDS ORDERED: PROPOFOL 20 ML ONE (10:47)
[2019-01-27] MEDS ORDERED: MIDAZOLAM HCL 2 MG/2 ML SINGLE DOSE VIAL ONE (10:48)
[2019-01-27] MEDS ORDERED: DEXAMETHASONE SOD PHOSPHATE 4 MG/1 ML VIAL ONE (10:50)
[2019-01-27] MEDS ORDERED: LIDOCAINE HCL/PF 2% SDV 5ML VIAL ONE (10:50)
[2019-01-27] MEDS ORDERED: DESFLURANE GAS 240 ML BOTTLE IH ONE (10:55)
[2019-01-27] MEDS ORDERED: BUPIVACAINE HCL/PF (5 MG/ML) 30 ML VIAL IJ ONE ×2 (11:50)
[2019-01-27] MEDS ORDERED: GLYCOPYRROLATE 0.2 MG/1 ML VIAL ONE (12:36)
[2019-01-27] MEDS ORDERED: NEOSTIGMINE METHYLSULFATE 0.5 MG/ML - 10 ML MDV ONE (12:36)
--- NOTE | 2019-01-27 13:06 | OP ---
Operative Note - Note: Operative Date: 01/27/19 Pre-Operative Diagnosis: gallstone pancreatitis Operation: laparoscopic cholecystectomy Findings: elongated, thin-walled gallbladder; duct and artery clipped together and cut; no spillage Post-Operative Diagnosis: Same as Pre-op Surgeon: Lenny Wilson Volunteer Recruitment Coordinator: Michael Selby Anesthesiologist/RESCUE WORKER: Oj Hernandez (w/Caity) Anesthesia: General, Local (20ml 0.5% marcaine) Specimens Removed: gallbladder to pathology Estimated Blood Loss (mls): 5 Fluid Volume Replaced (mls): 700 (crystalloid) Operative Report Dictated: Yes
[2019-01-27] MEDS ORDERED: HYDROmorphone HCl 2 MG/ML VIAL IVPB PRN (13:11)
[2019-01-27] MEDS ORDERED: LACTATED RINGERS SOLUTION 1,000 ML/1,000 ML INFUS.BAG IV SCH ×2 (13:11→20:34)
[2019-01-27] MEDS ORDERED: oxyCODONE HCL 5 MG TABLET PO PRN ×2 (13:59→20:35)
[2019-01-27] MEDS ORDERED: KETOROLAC TROMETHAMINE 15 MG/ML VIAL IVPUSH ONE (14:00)
[2019-01-27] MEDS ORDERED: ACETAMINOPHEN 1000 MG/100 ML VIAL (NON FORMULARY) IVPB ONE (14:01)
[2019-01-27] MEDS ORDERED: ACETAMINOPHEN 500 MG TABLET (FP) PO SCH (15:00)
[2019-01-27] MEDS: IBUPROFEN 600 MG TABLET (FP) PO SCH ×2 (17:34→23:40)
--- NOTE | 2019-01-27 18:22 | SURG ---
Surgery Purse Seiner Note Purse Seiner: Michael Selby PA-C (Suzy) Date of Service: 01/27/19 Diagnosis: gallstone pancreatitis Procedure: laparoscopic cholecystectomy I was present for the entirety of the operative procedure. For further detail, please refer to operative report. Visit type - Case Type Case Type: Scheduled - Emergency Emergency Visit: Yes ED Registration Date: 01/24/19 Care time: The patient presented to the Emergency Department on the above date and was hospitalized for further evaluation of their emergent condition. - New patient This patient is new to me today: Yes Date on this admission: 01/27/19 - Critical Care Critical Care patient: No
[2019-01-27] MEDS: ACETAMINOPHEN 325 MG TABLET (FP) PO SCH (21:02)
[2019-01-27] MEDS: URSODIOL 300 MG CAPSULE PO SCH (21:09)
[2019-01-28] MEDS: ACETAMINOPHEN 325 MG TABLET (FP) PO SCH ×2 (02:52→09:06)
[2019-01-28 04:10] LABS: SERUM IRON SATURATION 24 % (15-55); TOTAL IRON BINDING CAPACITY 262 ug/dL (250-450); UIBC 198 ug/dL (131-425)
[2019-01-28] MEDS: IBUPROFEN 600 MG TABLET (FP) PO SCH ×2 (06:12→12:13)
[2019-01-28 07:24] LABS: BASO % 0.2 % (0-2.0); EOS % 0.1 % (0-4.5); HEMATOCRIT 33.3 % (32.4-45.2); HEMOGLOBIN 10.7 GM/dL (10.7-15.3); LYMPH % 17.2 % (8-40); MCH 27.8 pg (25.7-33.7); MEAN CELL VOLUME 86.9 fl (80-96); MEAN PLT VOLUME 8.7 fl (7.5-11.1); NEUT % 77.5 % (42.8-82.8); PLATELET COUNT 273 K/MM3 (134-434); RBC 3.84 M/mm3 (3.60-5.2); RDW 14.5 % (11.6-15.6); WHITE BLOOD COUNT 10.9 K/mm3 (4.0-10.0)
[2019-01-28 07:54] LABS: ALBUMIN 3.2 g/dl (3.4-5.0); CALCIUM 8.6 mg/dL (8.5-10.1); CREATININE 0.9 mg/dL (0.55-1.3); POTASSIUM 3.9 mmol/L (3.5-5.1)
[2019-01-28] MEDS: URSODIOL 300 MG CAPSULE PO SCH (09:06)
[2019-01-28] MEDS: PANTOPRAZOLE SODIUM 40 MG VIAL IVPUSH SCH (09:11)
--- NOTE | 2019-01-28 10:29 | PN ---
Progress Note, Physician Chief Complaint: POD s/p lap jessica - Current Medication List Current Medications: Active Medications Acetaminophen (Tylenol -) 650 mg PO Q6H JESSIE Last Admin: 01/28/19 09:06 Dose: 650 mg Albuterol/Ipratropium (Duoneb -) 1 amp NEB Q6H PRN PRN Reason: SHORTNESS OF BREATH Diphenhydramine HCl (Benadryl Injection -) 25 mg IVPUSH Q4H PRN PRN Reason: FOR ITCHING Last Admin: 01/26/19 18:47 Dose: 25 mg Levofloxacin (Levaquin 500 Mg Premixed Ivpb -) 500 mg in 100 mls @ 100 mls/hr IVPB DAILY [facility]; Protocol Last Admin: 01/28/19 09:06 Dose: 100 mls/hr Metronidazole (Flagyl 500mg Premixed Ivpb -) 500 mg in 100 mls @ 100 mls/hr IVPB Q8H-IV JESSIE Last Admin: 01/28/19 09:06 Dose: 100 mls/hr Lactated Ringer's (Lactated Ringers Solution) 1,000 ml in 1,000 mls @ 75 mls/ hr IV ASDIR JESSIE Last Admin: 01/27/19 21:02 Dose: 75 mls/hr Ibuprofen (Motrin -) 600 mg PO Q6H JESSIE Last Admin: 01/28/19 06:12 Dose: 600 mg Ondansetron HCl (Zofran Injection) 4 mg IVPUSH Q6H PRN PRN Reason: NAUSEA Last Admin: 01/24/19 22:29 Dose: 4 mg Oxycodone HCl (Roxicodone -) 5 mg PO Q4H PRN PRN Reason: Pain Level 8 - 10 BREAKTHROUGH Pantoprazole Sodium (Protonix Iv) 40 mg IVPUSH DAILY [facility] Last Admin: 01/28/19 09:11 Dose: 40 mg Ursodiol (Actigal -) 300 mg PO BID [facility] Last Admin: 01/28/19 09:06 Dose: 300 mg - Objective Vital Signs: Vital Signs Temperature 98.6 F 01/28/19 06:00 Pulse Rate 62 01/28/19 06:00 Respiratory Rate 18 01/28/19 06:00 Blood Pressure 102/57 L 01/28/19 06:00 O2 Sat by Pulse Oximetry (%) 100 01/27/19 21:00 Labs: CBC, BMP 01/28/19 06:14 01/28/19 06:14 INR, PTT INR 1.16 (0.82-1.09) 01/24/19 09:59 Assessment/Plan doing well s/p lap jessica under GA. Pt has no c/o, is resting comfortably in bed. VSS, no pain, N/V, no other anesthetic issues/complications noted
--- NOTE | 2019-01-28 10:32 | OP ---
DATE OF OPERATION: 01/27/2019 PREOPERATIVE DIAGNOSIS: Gallstone pancreatitis. POSTOPERATIVE DIAGNOSIS: Gallstone pancreatitis. PROCEDURE: Laparoscopic cholecystectomy. SURGEON: Lenny Wilson MD ORCHID HAND: ANEL Alvarado ANESTHESIA: General endotracheal and local 20 mL of 0.5% Marcaine. ESTIMATED BLOOD LOSS: 5 mL. FLUIDS: Crystalloid 700 mL. SPECIMEN: Gallbladder to Pathology. FINDINGS: An elongated, thin-walled gallbladder. The duct and artery were clipped and cut together. There was no spillage. DISPOSITION: Stable and extubated to PACU. INDICATIONS FOR PROCEDURE: The patient is a 33-year-old [facility] female with a history of asthma, section, left breast lumpectomy, and contraceptive implant, who had originally presented to the [facility] Emergency Room with upper abdominal pain radiating through to her back. It was actually worse on the left, associated with nausea and vomiting, and change in urine color to orange the day prior to presentation. In the emergency room, she had a normal white count, elevated LFTs and lipase, including a bilirubin of 4.9 and lipase greater than 30,000. An ultrasound showed gallstones with possible sludge, possible wall thickening but no ductal dilation and no pericholecystic fluid. She was unable to tolerate MRI without sedation, but given the elevation in her bilirubin as high as almost 5 along with the pancreatitis, she was actually sent to [facility], where GI was consulted, and she was scheduled for ERCP. This was performed with extraction of 2 stones and 1 residual left in the duct that they could not get out, so a stent was placed. She had been started on antibiotics and fluids, and although initially her lipase came down the day after admission prior to the ERCP, later the day of the ERCP having tried a few clear liquids, she continued to have significant pain and tenderness, and was reverted to n.p.o. except medications and ice chips. Labs were trended again the next day, and her lipase bumped to about 2400. She was still somewhat painful and tender and was kept n.p.o. with fluids and antibiotics. This morning, her lipase is back in the normal range. Her pain and tenderness have improved significantly, and she is brought to the OR for laparoscopic cholecystectomy. Risks, benefits, and alternatives of the procedure were discussed with the patient including, but not limited to, bleeding, infection, injury to adjacent structures, bile leak or ductal injury, intra-abdominal abscess, incisional hernia, need for further procedures , and alternatives of delayed or no surgery, with attendant risks of recurrence of pancreatitis, cholecystitis, cholangitis, sepsis, or . The patient signed informed consent for the same the night before and is now ready for surgery. OPERATIVE TECHNIQUE: The patient was brought to the operating room and laid supine on the operating table. Sequential compression devices were applied to bilateral lower extremities, and as her scheduled doses of antibiotics had been given just prior on the floor, no additional antibiotics were given in the OR. After induction and intubation by Anesthesia, the patient's abdomen was prepped and draped in sterile fashion. A small supraumbilical midline incision was made with a scalpel and carried into subcutaneous tissues with electrocautery. The fascia was identified, scored, and elevated with Jewels clamps. The peritoneum was entered bluntly with the tip of a clamp, and a fingertip inserted to ensure entry into the abdominal cavity and the absence of any underlying adhesions. A stay stitch of 0 Vicryl was placed in the fascia in figure-of-8 fashion for later closure, and a Chinmay trocar introduced directly into the abdominal cavity and secured in place with the balloon. The abdomen was insufflated with carbon dioxide, and a laparoscope inserted to inspect the abdominal cavity. Patient was placed in reverse Trendelenburg position, and the gallbladder was immediately apparent over the edge of the liver. It appeared to be rather thin-walled. Three additional 5-mm ports were placed under direct vision , first in the subxiphoid area, through which a grasper was used to gently check the gallbladder and ensure that it did not require decompression. It was soft and mobile. Two additional ports were then placed in the right upper quadrant, through which graspers were introduced, and the first used to grasp the fundus of the gallbladder and elevate it over the liver edge. It was then noted to be quite elongated. The 2nd grasper was used to grasp the infundibulum of the gallbladder and retract it laterally, and a [place] dissector used through the operative port to begin dissecting the peritoneum at the base of the gallbladder, in order to identify the cystic duct and artery. Thin, filmy tissue was bluntly divided at the base of the gallbladder with the [place], and eventually the cystic duct came clearly into view. A window around it was created with a [place] dissector, until it was isolated as the only structure clearly entering the base of the gallbladder itself. The cystic artery was not yet clearly visible, although it appeared possibly to be behind the duct. In order not to risk avulsing the artery, it was decided to clip the cystic duct first, and there appeared to be 1 small band of possibly peritoneal tissue crossing in front of it that was difficult to separate without risking injury to the duct, so it was left with the structure to be clipped. A 5-mm clipper was used to apply 2 clips proximally and 1 distally, and Endo Jarrod used to divide between the clips. [place] dissector was then also used to continue carefully dissecting the filmy tissue away from the base of the gallbladder itself, looking for the cystic artery. No additional arterial or pulsatile structure was identified. The hook cautery was then used to begin carefully up the medial and lateral sides of the gallbladder on the peritoneum away from the gallbladder wall in one last attempt to make sure that the cystic artery had not been missed. The gallbladder was clearly coming up from the base of the liver with no additional structure noted. At that point, it became clear that looking back at the stump where the duct had been clipped that the duct and artery appeared to have been clipped together, and the stump was noted to pulsate. The gallbladder end was also beginning to get purplish. Thus, the hook cautery was used to continue taking the gallbladder off the liver bed very carefully until we reached all the way to the top. Once it had been completely from liver edge, it was placed in an EndoCatch bag through the Chinmay trocar site, with the camera switched to the subxiphoid port, and withdrawn out the umbilical port site under direct vision in the bag. Gallbladder was passed off the table for a pathology specimen, and quick palpation of the gallbladder did not reveal any significantly-sized stones within it. The Chinmay trocar and pneumoperitoneum were then re-established, the camera returned to the umbilical port, and the operative site inspected for hemostasis. There was no active bleeding noted. There was very little fluid even noted in the area and the suction controls technician used simply to suction up small amounts of serosanguineous fluid from the side of the liver in the operative area. Again, the clips that had been placed on the duct appeared to be on both the duct and artery together, and hemostasis was noted to be complete. The 5-mm ports were then removed under direct vision. The Chinmay trocar and camera were removed from the umbilical site, and the abdomen exsufflated of carbon dioxide. Patient was returned to neutral position. The fascial stitch was tied to close the defect there, and hemostasis was achieved in the port sites with electrocautery where necessary. Local anesthetic was then infiltrated into all the port sites. Skin was closed with 4-0 Vicryl subcuticular sutures, including a running at the umbilical site. Benzoin and Steri-Strips were then applied to each incision. Dressings of gauze and Tegaderm were applied over these. Counts were correct at the end of the procedure. The patient was then awakened and extubated by Anesthesia, moved back to a stretcher, and taken to the recovery room in stable condition having tolerated the procedure well. ANEL Selby was an essential nurse practitioner physician assistant throughout the case, including facilitating entry into the abdominal cavity, grasping and manipulation of the gallbladder throughout the case, and assistance with closing the skin at the end. Lenny Wilson M.D. [id number] MTDD
[2019-01-28 10:57] VITALS: BP 118/61; PULSE 73; TEMP 98
--- NOTE | 2019-01-28 12:32 | PN.GI ---
GI Progress Note Subjective: GI NOte ( covering Dr. James); Tolerated breakfast oin day 1 post cholecystectomy. Has expected incision pain but reports this as bearable. I gave her my office phone number and advised to her arrange a followup visit at which time a repeat ERCP to extract his stent and stone will be arranged. - Objective Vital Signs: Vital Signs Temperature 98 F 01/28/19 10:00 Pulse Rate 73 01/28/19 10:00 Respiratory Rate 18 01/28/19 10:00 Blood Pressure 118/61 01/28/19 10:00 O2 Sat by Pulse Oximetry (%) 100 01/28/19 09:00 Laboratory Tests 01/27/19 01/28/19 01/28/19 06:20 06:14 06:14 WBC 10.9 H Total Bilirubin 1.2 H 1.0 AST 148 H 112 H ALT 402 H 360 H Alkaline Phosphatase 177 H 168 H Lipase 01/28/19 06:14 WBC Total Bilirubin AST ALT Alkaline Phosphatase Lipase 126 Constitutional: Calm Gastrointestinal Inspection: Yes: Scars (bandages in place) ...Auscultate: Yes: Normoactive Bowel Sounds ...Palpate: Yes: Soft Labs: CBC, BMP 01/28/19 06:14 01/28/19 06:14 INR, PTT INR 1.16 (0.82-1.09) 01/24/19 09:59 Assessment/Plan Impression - s/p lap choly and ERCP with stenting following biliary pancreatitis Plan: -- No GI objections to discharge on Actigal -- F/U in office to arrange ERCP Problem List - Problems (1) History of biliary stent insertion Code(s): Z98.890 - OTHER SPECIFIED POSTPROCEDURAL STATES (2) Asthma Code(s): J45.909 - UNSPECIFIED ASTHMA, UNCOMPLICATED (3) Calculus of gallbladder and bile duct with obstruction without cholecystitis Code(s): K80.71 - CALCULUS OF GB AND BILE DUCT W/O CHOLECYST W OBSTRUCTION (4) Gallstone pancreatitis Code(s): K85.10 - BILIARY ACUTE PANCREATITIS WITHOUT NECROSIS OR INFECTION
--- NOTE | 2019-01-28 13:16 | PN ---
Progress Note, Physician History of Present Illness: Pt with gallstone pancreatitis, s/p ERCP with extraction of two out of three stones and stent placement, and brief bump in lipase. Also s/p lap jessica yesterday, with chemical resolution of pancreatitis. She is seen and examined in bed, with present. She notes incisional pain, but her original pain has resolved. Managed well with alternating tylenol and ibuprofen. Ambulated, voided, tolerated diet. No BM yet. Using IS. - Current Medication List Current Medications: Active Medications Acetaminophen (Tylenol -) 650 mg PO Q6H [facility] Last Admin: 01/28/19 09:06 Dose: 650 mg Albuterol/Ipratropium (Duoneb -) 1 amp NEB Q6H PRN PRN Reason: SHORTNESS OF BREATH Diphenhydramine HCl (Benadryl Injection -) 25 mg IVPUSH Q4H PRN PRN Reason: FOR ITCHING Last Admin: 01/26/19 18:47 Dose: 25 mg Levofloxacin (Levaquin 500 Mg Premixed Ivpb -) 500 mg in 100 mls @ 100 mls/hr IVPB DAILY [facility]; Protocol Last Admin: 01/28/19 09:06 Dose: 100 mls/hr Metronidazole (Flagyl 500mg Premixed Ivpb -) 500 mg in 100 mls @ 100 mls/hr IVPB Q8H-IV JESSIE Last Admin: 01/28/19 09:06 Dose: 100 mls/hr Lactated Ringer's (Lactated Ringers Solution) 1,000 ml in 1,000 mls @ 75 mls/ hr IV ASDIR [facility] Last Admin: 01/27/19 21:02 Dose: 75 mls/hr Ibuprofen (Motrin -) 600 mg PO Q6H JESSIE Last Admin: 01/28/19 12:13 Dose: 600 mg Ondansetron HCl (Zofran Injection) 4 mg IVPUSH Q6H PRN PRN Reason: NAUSEA Last Admin: 01/24/19 22:29 Dose: 4 mg Oxycodone HCl (Roxicodone -) 5 mg PO Q4H PRN PRN Reason: Pain Level 8 - 10 BREAKTHROUGH Pantoprazole Sodium (Protonix Iv) 40 mg IVPUSH DAILY [facility] Last Admin: 01/28/19 09:11 Dose: 40 mg Ursodiol (Actigal -) 300 mg PO BID JESSIE Last Admin: 01/28/19 09:06 Dose: 300 mg - Objective Vital Signs: Vital Signs Temperature 98 F 01/28/19 10:00 Pulse Rate 73 01/28/19 10:00 Respiratory Rate 18 01/28/19 10:00 Blood Pressure 118/61 01/28/19 10:00 O2 Sat by Pulse Oximetry (%) 100 01/28/19 09:00 Constitutional: Yes: Well Nourished, No Distress, Calm Eyes: Yes: Conjunctiva Clear, EOM Intact. No: Sclera Icterus HENT: Yes: Atraumatic, Normocephalic Gastrointestinal: Yes: Soft, Abdomen, Obese, Tenderness (minimal LUQ now, mostly incisional and some RUQ, mostly at umbilicus - appropriate postop), Tenderness, Epigastrium (incisional) Extremities: No: Cool, Cyanosis Integumentary: Yes: Incision (x4 dressed), Tattoos. No: Jaundice, Rash Wound/Incision: Yes: Steri Strips (under dressings), Dressing Dry and Intact (x4 ). No: Dressing Removed Neurological: Yes: Alert, Oriented Labs: CBC, BMP 01/28/19 06:14 01/28/19 06:14 CMP Sodium 139 mmol/L (136-145) 01/28/19 06:14 Potassium 3.9 mmol/L (3.5-5.1) 01/28/19 06:14 Chloride 105 mmol/L (98-107) 01/28/19 06:14 Carbon Dioxide 24 mmol/L (21-32) 01/28/19 06:14 Anion Gap 9 MMOL/L (8-16) 01/28/19 06:14 BUN 9 mg/dL (7-18) 01/28/19 06:14 Creatinine 0.9 mg/dL (0.55-1.3) 01/28/19 06:14 Est GFR (CKD-EPI)AfAm 96.69 01/28/19 06:14 Est GFR (CKD-EPI)NonAf 83.42 01/28/19 06:14 Random Glucose 81 mg/dL (74-106) 01/28/19 06:14 Calcium 8.6 mg/dL (8.5-10.1) 01/28/19 06:14 Magnesium 2.0 mg/dL (1.8-2.4) 01/28/19 06:14 Total Bilirubin 1.0 mg/dL (0.2-1) 01/28/19 06:14 AST 112 U/L (15-37) H 01/28/19 06:14 ALT 360 U/L (13-61) H 01/28/19 06:14 Alkaline Phosphatase 168 U/L (45-117) H 01/28/19 06:14 Total Protein 6.0 g/dl (6.4-8.2) L 01/28/19 06:14 Albumin 3.2 g/dl (3.4-5.0) L 01/28/19 06:14 Lipase 126 U/L (73-393) 01/28/19 06:14 LFTs down, lipase normal wbc with normal postop bump Problem List - Problems (1) Gallstone pancreatitis Assessment/Plan: s/p ERCP with stone extraction and residual stone left, with stent placement brief mild post-ERCP pancreatitis resolved no antibiotics on discharge stop IVF tolerating low fat diet Code(s): K85.10 - BILIARY ACUTE PANCREATITIS WITHOUT NECROSIS OR INFECTION (2) Calculus of gallbladder and bile duct with obstruction without cholecystitis Assessment/Plan: POD1 s/p laparoscopic cholecystectomy doing well tolerable incisional pain, managed with nonnarcotics ambulated, voided, using IS no bowel function yet may use prunes/juice at home as desired - should return shortly incisions with dressings c/d/i ok for d/c home on actigall per GI no further antibiotics instructions in dc plan discussed with Bernie Gregory NP f/u in 2 wks with surgery f/u with GI as noted Code(s): K80.71 - CALCULUS OF GB AND BILE DUCT W/O CHOLECYST W OBSTRUCTION (3) Epigastric pain Assessment/Plan: appropriate postop Code(s): R10.13 - EPIGASTRIC PAIN (4) Nausea and vomiting Assessment/Plan: resolved Code(s): R11.2 - NAUSEA WITH VOMITING, UNSPECIFIED Qualifiers: Vomiting type: unspecified Vomiting Intractability: non-intractable Qualified Code(s): R11.2 - Nausea with vomiting, unspecified
[2019-01-28] MEDS ORDERED: URSODIOL 300 MG CAPSULE PO SCH (14:00)
--- NOTE | 2019-01-28 18:02 | DS ---
Physical Exam: SUBJECTIVE: Patient seen and examined OBJECTIVE: Vital Signs Period Temp Pulse Resp BP Sys/Jacinto Pulse Ox Last 24 Hr 9.3 F-98.6 F 54-73 18-18 102-153/51-88 100-100 PHYSICAL EXAM GENERAL: The patient is awake, alert, and fully oriented, in no acute distress. HEAD: Normal with no signs of trauma. EYES: PERRL, extraocular movements intact, sclera anicteric, conjunctiva clear. ENT: Ears normal, nares patent, oropharynx clear without exudates, moist mucous membranes. NECK: Trachea midline, full range of motion, supple. LUNGS: Breath sounds equal, clear to auscultation bilaterally, no wheezes, no crackles, no accessory muscle use. HEART: Regular rate and rhythm, S1, S2 without murmur, rub or gallop. ABDOMEN: Soft, nontender, nondistended, normoactive bowel sounds, no guarding, no rebound, no hepatosplenomegaly, no masses. EXTREMITIES: 2+ pulses, warm, well-perfused, no edema. NEUROLOGICAL: Cranial nerves II through XII grossly intact. Normal speech, gait not observed. PSYCH: Normal mood, normal affect. SKIN: Warm, dry, normal turgor, no rashes or lesions noted. LABS Laboratory Results - last 24 hr 01/27/19 01/28/19 01/28/19 06:20 06:14 06:14 WBC 10.9 H RBC 3.84 Hgb 10.7 Hct 33.3 MCV 86.9 MCH 27.8 MCHC 32.0 RDW 14.5 Plt Count 273 MPV 8.7 Absolute Neuts (auto) 8.4 H Neutrophils % 77.5 D Lymphocytes % 17.2 D Monocytes % 5.0 Eosinophils % 0.1 Basophils % 0.2 Nucleated RBC % 0 Sodium 139 Potassium 3.9 Chloride 105 Carbon Dioxide 24 Anion Gap 9 BUN 9 Creatinine 0.9 Est GFR (CKD-EPI)AfAm 96.69 Est GFR (CKD-EPI)NonAf 83.42 Random Glucose 81 Calcium 8.6 Magnesium 2.0 Iron 64 TIBC 262 Iron Saturation 24 Total Bilirubin 1.0 AST 112 H ALT 360 H Alkaline Phosphatase 168 H Total Protein 6.0 L Albumin 3.2 L Lipase 01/28/19 06:14 WBC RBC Hgb Hct MCV MCH MCHC RDW Plt Count MPV Absolute Neuts (auto) Neutrophils % Lymphocytes % Monocytes % Eosinophils % Basophils % Nucleated RBC % Sodium Potassium Chloride Carbon Dioxide Anion Gap BUN Creatinine Est GFR (CKD-EPI)AfAm Est GFR (CKD-EPI)NonAf Random Glucose Calcium Magnesium Iron TIBC Iron Saturation Total Bilirubin AST ALT Alkaline Phosphatase Total Protein Albumin Lipase 126 HOSPITAL COURSE: Date of Admission:01/24/19 Date of Discharge: 01/28/19 Discharge Summary Reason For Visit: ABD PAIN Condition: Improved - Instructions Diet, Activity, Other Instructions: You were found to have gallstone pancreatitis and were treated with IV fluids, antibiotics and an ERCP by Dr. Rm Kaur of Gastroenterology. On 01/25/19, he was able to remove some stones from your bile duct, but one could not be extracted, so a stent was placed to allow bile to drain around it. You had a brief post-ERCP exacerbation of pancreatitis, which resolved with bowel rest. Postoperative instructions: You then had a laparoscopic cholecystectomy on by Dr. Lenny Wilson of [facility]. Activity: Resume your usual activities gradually, but no heavy exertion or lifting more than 10-15 pounds for 1 month. Remove dressings 48 hours after surgery; sticky tapes underneath will fall off by themselves. You may shower daily starting then, just pat the incision areas dry. No bath or swimming until skin incisions have healed. Eat lightly at first, but advance to your usual diet as tolerated. Pain: For pain, you may use and alternate Tylenol (acetaminophen) 1-2 pills and/ or ibuprofen 200 mg (1-3 pills) every 6 hours each as needed; this means that you can take one OR the other at 3-hour intervals. Do not take more than 4000mg of acetaminophen in a day. Take medications as prescribed or indicated on the labeling. Follow-up: Call Dr. Wilson's office at [phone] to make your postop appointment (Wednesday in approximately 2 weeks after surgery). Clinic is held in the [facility] on the first floor of [facility]. Call the office if you have: * increasing pain not responsive to pain medication * fever of 101F or higher * vomiting * unusual or increasing bleeding or drainage from wounds * increasing redness or swelling at wound sites You will need to follow up with Gastroenterology/Dr. Rm Kaur in about a month, to discuss scheduling a followup ERCP with residual stone and stent removal after that. Please call for an appointment with him as well. You have been prescribed Actigall (ursodiol), a medicine that may help to break down the stone left in your duct. It should be taken 3x daily as prescribed until GI repeats the ERCP. Please make sure you do not run out of medicine, and can see Dr. Kaur in time for refills if needed. Also, see your primary medical doctor within 1-2 weeks. Referrals: Lenny Wilson MD [Staff Physician] - Rm Kaur MD [Staff Physician] - Disposition: HOME - Home Medications Comprehensive Discharge Medication List: Ambulatory Orders Etonogestrel [Nexplanon] 68 mg SQ ONCE 01/24/19 Acetaminophen [Tylenol .Extra-Strength -] 650 mg PO Q6H tablet 01/28/19 Fluconazole [Diflucan] 150 mg PO ONCE #1 tablet 01/28/19 Ibuprofen [Motrin -] 600 mg PO Q6H tablet 01/28/19 Ursodiol [Actigal -] 300 mg PO TID #180 capsule 01/28/19 Problem List - Problems (1) Gallstone pancreatitis Code(s): K85.10 - BILIARY ACUTE PANCREATITIS WITHOUT NECROSIS OR INFECTION (2) Nausea and vomiting Code(s): R11.2 - NAUSEA WITH VOMITING, UNSPECIFIED Qualifiers: Vomiting type: unspecified Vomiting Intractability: non-intractable Qualified Code(s): R11.2 - Nausea with vomiting, unspecified (3) Asthma Code(s): J45.909 - UNSPECIFIED ASTHMA, UNCOMPLICATED (4) Prophylactic measure Code(s): Z29.9 - ENCOUNTER FOR PROPHYLACTIC MEASURES, UNSPECIFIED - Discharge Referral Referred to [facility] No
--- NOTE | 2019-01-30 17:58 | PATH ---
Surgical Pathology Report Patient Name: TYLER LARA [facility]. Rec. #: [id number] /Age/Gender: 1985 (Age: 33) / F Account: [id number] Location: [facility] R Taken: 01/27/2019 Received: 01/27/2019 Reported: 01/30/2019 Physicians: Lenny Wilson M.D. Specimen(s) Received GALLBLADDER Clinical History Gallstone pancreatitis status post ERCP with stent Final Diagnosis GALLBLADDER, LAPAROSCOPIC CHOLECYSTECTOMY: CHRONIC CHOLECYSTITIS WITH CHOLELITHIASIS. Electronically Signed Benita Roque M.D. Gross Description Received in formalin, labeled "gallbladder," is a 10.5 x 2.8 x 2.8 cm. gallbladder with a 0.2 cm. in length portion of cystic duct attached. The outer surface is [place] and varies from smooth to shaggy. The lumen contains green, tenacious bile as well as abundant yellow choleliths ranging from 0.1-0.5 cm in greatest dimension. The mucosa is green and focally eroded. The wall of the gallbladder averages 0.1 cm. in thickness. [employer]or [employer]er sections are submitted in one cassette. /01/27/2019 saudi01/27/2019
== END 2019-01-28 14:02 | disposition home or self-care (01) | DRG 263 ==
LOC: FER 06:25 → J8W 13:49
PROVIDERS: ADMIT Internal Medicine; ATTEND Nurse Practitioner Family
PROC: 0FC98ZZ Extirpation of Matter from Common Bile Duct, Via Natural or Artificial Opening Endoscopic (ICD-10-PCS; 2019-01-25)
PROC: BF10YZZ Fluoroscopy of Bile Ducts using Other Contrast (ICD-10-PCS; 2019-01-25)
PROC: 0F798DZ Dilation of Common Bile Duct with Intraluminal Device, Via Natural or Artificial Opening Endoscopic (ICD-10-PCS; 2019-01-25)
PROC: 0FT44ZZ Resection of Gallbladder, Percutaneous Endoscopic Approach (ICD-10-PCS; principal; 2019-01-27 12:30)
DX: K85.10 Biliary acute pancreatitis without necrosis or infection (principal); I10 Essential (primary) hypertension; J45.909 Unspecified asthma, uncomplicated; K80.71 Calculus of gallbladder and bile duct without cholecystitis with obstruction; D64.9 Anemia, unspecified
CPT/HCPCS: 36415; 74177-TC; 76000-TC-FY; 76705-TC; 80053; 81003; 82150; 82248; 82728; 83540; 83550; 83690; 83735; 84703; 85025; 85610; 86140; 86850; 86900; 86901; 87040; 87086; 88304-TC; 93005; 94760; 99284-25; J0131; J7030